=== PATIENT | female | born 1955 | race Caucasian/White ===

== ENCOUNTER 2017-09-25 01:44 | Emergency (ER) | payer OTHER ==
[~2017-09-25] VITALS: Ht 165.1 cm; Wt 70.3 kg
[~2017-09-25 01:44] MED LIST: ALPR0.25 PO; ALPR0.254 PO; ATOR40TA59 PO; HYDR-971 PO; OLME1TAB21 PO; OLME20TA19 PO; OLME5TAB4 PO; PANT40TA3 PO; ZOLP10TA PO
[2017-09-25 02:23] LABS: BASO # 0.1 x10^3/uL (0.0-0.2); BASO % 1 % (0-3); EOS % 0 % (0-3); HEMATOCRIT 37.7 % (36.0-47.0); HEMOGLOBIN 12.5 g/dL (12.0-15.5); LYMPH # 3.1 x10^3/uL (1.0-4.8); LYMPH % 26 % (24-48); MEAN CORPUSCULAR HEMOGLOBIN 32 pg (25-35); MEAN CORPUSCULAR HGB CONC 33 g/dL (31-37); MEAN CORPUSCULAR VOLUME 98 fL (79-100); MONO % 6 % (0-9); NEUT % 67 % (31-73); PLATELET COUNT 289 x10^3/uL (140-400); RED BLOOD COUNT 3.85 x10^6/uL (3.50-5.40); WHITE BLOOD COUNT 11.9 x10^3/uL (4.0-11.0)
[2017-09-25] MEDS ORDERED: IV NORMAL SALINE 1000ML BAG 1,000 ML IV ONE (02:30)
[2017-09-25] MEDS ORDERED: LIDO:MAALOX:DONNATAL 1:1:1 15 ML SINGLE DOSE SWSW ONE (02:30)
[2017-09-25 02:38] LABS: CALCIUM 8.6 mg/dL (8.5-10.1); CREATININE 0.8 mg/dL (0.6-1.0); GFR 73.2; POTASSIUM 3.7 mmol/L (3.5-5.1)
[2017-09-25 02:44] LABS: ALBUMIN 3.8 g/dL (3.4-5.0); ALBUMIN/GLOBULIN RATIO 1.3 (1.0-1.7); TOTAL BILIRUBIN 0.4 mg/dL (0.2-1.0); TOTAL PROTEIN 6.8 g/dL (6.4-8.2)
--- NOTE | 2017-09-25 03:46 | PHYS DOC ---
Past Medical History Past Medical History: No Pertinent History, Anxiety, Depression, High Cholesterol, Hypertension Past Surgical History: Appendectomy, Cholecystectomy, Colectomy, Additional Past Surgical Histo: colectomy Additional Information: 1 PPD Alcohol Use: Occasionally Drug Use: None Adult General Chief Complaint Chief Complaint: ABDOMINAL PAIN HPI HPI Patient is a 62 year old female who had lap karime yesterday. she did not fill hydrocodone. she has had intense epigastric pain into chest, shoulders, back. no n/v/d. no fever. she has extreme anxiety and can't calm down. she tried to eat but it just made her stomach "gurgle". Review of Systems Review of Systems Constitutional: Denies fever or chills [] Eyes: Denies change in visual acuity, redness, or eye pain [] HENT: Denies nasal congestion or sore throat [] Respiratory: Denies cough or shortness of breath pain into chest arms, back Cardiovascular: No additional information not addressed in HPI [] GI: +abdominal pain, no nausea, vomiting, bloody stools or diarrhea [] : Denies dysuria or hematuria [] Musculoskeletal: Denies back pain or joint pain [] Integument: Denies rash or skin lesions [] Neurologic: Denies headache, focal weakness or sensory changes [] Endocrine: Denies polyuria or polydipsia [] All other systems were reviewed and found to be within normal limits, except as documented in this note. Current Medications Current Medications Current Medications Medications (Trade) Dose Ordered Sig/Shawn Start Time Stop Time Status Last Admin Dose Admin Lorazepam (Ativan) 1 mg 1X ONCE 09/25/17 03:00 09/25/17 03:01 DC 09/25/17 02:28 1 MG Multi-Ingredient Mouthwash/Gargle (Gi Cocktail Single Dose) 15 ml 1X ONCE 09/25/17 02:30 09/25/17 02:31 DC 09/25/17 02:27 15 ML Sodium Chloride 1,000 ml @ 1,000 mls/hr 1X ONCE 09/25/17 02:30 09/25/17 03:29 DC 09/25/17 02:28 1,000 MLS/HR Allergies Allergies Allergies Coded Allergies Type Severity Reaction Last Updated Verified No Known Drug Allergies 09/23/17 No Physical Exam Physical Exam Constitutional: Well developed, well nourished, very anxious and tearful non- toxic appearance. [] HENT: Normocephalic, atraumatic, bilateral external ears normal, oropharynx moist, no oral exudates, nose normal. [] Eyes: PERRLA, EOMI, conjunctiva normal, no discharge. [] Neck: Normal range of motion, no tenderness, supple, no stridor. [] Cardiovascular:Heart rate regular rhythm, no murmur [] Lungs & Thorax: Bilateral breath sounds clear to auscultation [] Abdomen: Bowel sounds normal, soft, incisions are c/d/i. abd not distended, BS normal.no masses, no pulsatile masses. [] Skin: Warm, dry, no erythema, no rash. [] Back: No tenderness, no CVA tenderness. [] Extremities: No tenderness, no cyanosis, no clubbing, ROM intact, no edema. [] Neurologic: Alert and oriented X 3, normal motor function, normal sensory function, no focal deficits noted. [] Psychologic: Affect normal, judgement normal, mood normal. [] Current Patient Data Vital Signs Vital Signs Date Time Temp Pulse Resp B/P (MAP) Pulse Ox O2 Delivery O2 Flow Rate FiO2 09/25/17 01:52 97.9 64 20 151/79 (103) 97 Room Air 97.9 Lab Values Laboratory Tests Test 09/25/17 02:13 White Blood Count 11.9 x10^3/uL (4.0-11.0) H Red Blood Count 3.85 x10^6/uL (3.50-5.40) Hemoglobin 12.5 g/dL (12.0-15.5) Hematocrit 37.7 % (36.0-47.0) Mean Corpuscular Volume 98 fL (79-100) Mean Corpuscular Hemoglobin 32 pg (25-35) Mean Corpuscular Hemoglobin Concent 33 g/dL (31-37) Red Cell Distribution Width 13.0 % (11.5-14.5) Platelet Count 289 x10^3/uL (140-400) Neutrophils (%) (Auto) 67 % (31-73) Lymphocytes (%) (Auto) 26 % (24-48) Monocytes (%) (Auto) 6 % (0-9) Eosinophils (%) (Auto) 0 % (0-3) Basophils (%) (Auto) 1 % (0-3) Neutrophils # (Auto) 7.9 x10^3uL (1.8-7.7) H Lymphocytes # (Auto) 3.1 x10^3/uL (1.0-4.8) Monocytes # (Auto) 0.7 x10^3/uL (0.0-1.1) Eosinophils # (Auto) 0.0 x10^3/uL (0.0-0.7) Basophils # (Auto) 0.1 x10^3/uL (0.0-0.2) Sodium Level 146 mmol/L (136-145) H Potassium Level 3.7 mmol/L (3.5-5.1) Chloride Level 106 mmol/L (98-107) Carbon Dioxide Level 28 mmol/L (21-32) Anion Gap 12 (6-14) Blood Urea Nitrogen 14 mg/dL (7-20) Creatinine 0.8 mg/dL (0.6-1.0) Estimated GFR (Cockcroft-Gault) 73.2 BUN/Creatinine Ratio 18 (6-20) Glucose Level 108 mg/dL (70-99) H Calcium Level 8.6 mg/dL (8.5-10.1) Total Bilirubin 0.4 mg/dL (0.2-1.0) Aspartate Amino Transferase (AST) 22 U/L (15-37) Alanine Aminotransferase (ALT) 33 U/L (14-59) Alkaline Phosphatase 47 U/L (46-116) Total Protein 6.8 g/dL (6.4-8.2) Albumin 3.8 g/dL (3.4-5.0) Albumin/Globulin Ratio 1.3 (1.0-1.7) Lipase 88 U/L (73-393) Laboratory Tests 09/25/17 02:13 Laboratory Tests 09/25/17 02:13 EKG EKG [] Radiology/Procedures Radiology/Procedures [] Course & Med Decision Making Course & Med Decision Making Pertinent Labs and Imaging studies reviewed. (See chart for details) pt did not take any pain meds. she is very anxious and panicking. tried to reassure her that her abdominal exam is benign. her lungs sound normal and VSS. I believe this to be typical post-op pain. after ativan, she was much calmer and more reasonable [] Jhony Disclaimer Dragon Disclaimer This electronic medical record was generated, in whole or in part, using a voice recognition dictation system. Departure Departure Impression: Primary Impression: Anxiety Additional Impression: Post-op pain Disposition: HOME, SELF-CARE Condition: IMPROVED Referrals: HOANG KELLER MD (PCP) Patient Instructions: Anxiety and Panic Attacks Additional Instructions: hydrocodone for pain. take colace daily to help avoid constipation. zofran for nausea. xanax as needed for anxiety. return if pain worsens Problem Qualifiers JUAN MUNOZ MD Sep 25, 2017 03:46
[2017-09-25 03:55] VITALS: BP 133/66
[2017-09-25] MEDS ORDERED: HYDROcodone/APAP 5/325MG 1 TAB TABLET ONE (04:07)
[2017-09-25] MEDS ORDERED: HYDROcodone/APAP 5/325MG 1 TAB TABLET PO ONE (04:15)
== END 2017-09-25 04:10 | disposition home or self-care (01) ==
LOC: ER 01:44
DX: G89.18 Other acute postprocedural pain (principal); F41.9 Anxiety disorder, unspecified; R10.13 Epigastric pain; E78.00 Pure hypercholesterolemia, unspecified; I10 Essential (primary) hypertension; Z90.49 Acquired absence of other specified parts of digestive tract; F17.200 Nicotine dependence, unspecified, uncomplicated
CPT/HCPCS: 36415; 80053; 83690; 85025; 96361; 96374; 99285; J2060; J7030

== ENCOUNTER 2017-10-12 02:27 | Emergency (ER) | payer OTHER ==
[2017-10-12] MEDS: ONDANSETRON PF 4 MG/2 ML VIAL. IV (03:15)
[2017-10-12] MEDS: IV NORMAL SALINE 1000ML BAG 1,000 ML IV (03:19)
[2017-10-12 03:30] LABS: ADD MAN DIFF? NO
[2017-10-12 03:41] LABS: BASO # 0.1 x10^3/uL (0.0-0.2); BASO % 1 % (0-3); EOS # 0.3 x10^3/uL (0.0-0.7); EOS % 3 % (0-3); HEMATOCRIT 40.9 % (36.0-47.0); HEMOGLOBIN 13.6 g/dL (12.0-15.5); LYMPH # 2.9 x10^3/uL (1.0-4.8); LYMPH % 39 % (24-48); MEAN CORPUSCULAR HEMOGLOBIN 33 pg (25-35); MEAN CORPUSCULAR HGB CONC 33 g/dL (31-37); MEAN CORPUSCULAR VOLUME 99 fL (79-100); MONO # 0.6 x10^3/uL (0.0-1.1); MONO % 7 % (0-9); NEUT # 3.7 x10^3uL (1.8-7.7); NEUT % 49 % (31-73); PLATELET COUNT 332 x10^3/uL (140-400); RED BLOOD COUNT 4.12 x10^6/uL (3.50-5.40); RED CELL DISTRIBUTION WIDTH 13.4 % (11.5-14.5); WHITE BLOOD COUNT 7.5 x10^3/uL (4.0-11.0)
[2017-10-12 03:52] LABS: ANION GAP 13 (6-14); BLOOD UREA NITROGEN 10 mg/dL (7-20); BUN/CREATININE RATIO 14 (6-20); CALCIUM 9.2 mg/dL (8.5-10.1); CARBON DIOXIDE 26 mmol/L (21-32); CHLORIDE 104 mmol/L (98-107); CREATININE 0.7 mg/dL (0.6-1.0); GFR 85.4; GLUCOSE 109 mg/dL (70-99); POTASSIUM 4.3 mmol/L (3.5-5.1); SODIUM 143 mmol/L (136-145)
[2017-10-12 03:58] LABS: ALBUMIN 3.9 g/dL (3.4-5.0); ALBUMIN/GLOBULIN RATIO 1.3 (1.0-1.7); ALK PHOS 49 U/L (46-116); ALT (SGPT) 35 U/L (14-59); AST (SGOT) 24 U/L (15-37); LIPASE 114 U/L (73-393); TOTAL BILIRUBIN 0.4 mg/dL (0.2-1.0); TOTAL PROTEIN 6.8 g/dL (6.4-8.2)
[2017-10-12 04:05] LABS: TROPONINI < 0.017 ng/mL (0.000-0.055)
[2017-10-12 04:06] LABS: CKMB MASS 0.5 ng/mL (0.0-3.6); CREATINE KINASE 69 U/L (26-192)
[2017-10-12 04:08] LABS: D-DIMER < 0.27 ug/mlFEU (0.00-0.50)
== END 2017-10-12 04:30 | disposition home or self-care (01) ==
LOC: ER 02:27
DX: R10.84 Generalized abdominal pain (principal); R11.0 Nausea; F41.9 Anxiety disorder, unspecified; E78.00 Pure hypercholesterolemia, unspecified; I10 Essential (primary) hypertension; Z90.49 Acquired absence of other specified parts of digestive tract
CPT/HCPCS: 36415; 80053; 82553; 83690; 84484; 85025; 85379; 93005; 96360; 99285-25; J7030

== ENCOUNTER 2017-11-14 16:22 | Emergency (ER) | payer OTHER ==
[2017-11-14 16:57] LABS: ADD MAN DIFF? NO; BILIRUBIN,URINE NEGATIVE (NEG); CLARITY,URINE CLEAR; COLOR,URINE ORANGE; GLUCOSE,URINE NEGATIVE (NEG); NITRITE,URINE POSITIVE (NEG); PH,URINE 5.5; PROTEIN,URINE NEGATIVE (NEG-TRACE); UROBILINOGEN,URINE 0.2 mg/dL (0.2 mg/dL)
[2017-11-14 17:00] LABS: BASO # 0.1 x10^3/uL (0.0-0.2); BASO % 1 % (0-3); EOS # 0.2 x10^3/uL (0.0-0.7); EOS % 2 % (0-3); HEMATOCRIT 38.7 % (36.0-47.0); HEMOGLOBIN 13.2 g/dL (12.0-15.5); LYMPH # 2.6 x10^3/uL (1.0-4.8); LYMPH % 25 % (24-48); MEAN CORPUSCULAR HEMOGLOBIN 33 pg (25-35); MEAN CORPUSCULAR HGB CONC 34 g/dL (31-37); MEAN CORPUSCULAR VOLUME 98 fL (79-100); MONO # 0.8 x10^3/uL (0.0-1.1); MONO % 7 % (0-9); NEUT # 6.6 x10^3uL (1.8-7.7); NEUT % 65 % (31-73); PLATELET COUNT 356 x10^3/uL (140-400); RED BLOOD COUNT 3.96 x10^6/uL (3.50-5.40); RED CELL DISTRIBUTION WIDTH 13.1 % (11.5-14.5); WHITE BLOOD COUNT 10.2 x10^3/uL (4.0-11.0)
[2017-11-14] MEDS: IV NORMAL SALINE 1000ML BAG 1,000 ML IV ×2 (17:00)
[2017-11-14] MEDS: ONDANSETRON PF 4 MG/2 ML VIAL. IV ×2 (17:01)
[2017-11-14] MEDS: KETOROLAC 30 MG/ML INJ. IV ×2 (17:02)
[2017-11-14] MEDS: fentaNYL PF VIAL 100 MCG/2 ML VIAL IV ×2 (17:03)
[2017-11-14 17:07] LABS: BACTERIA,URINE 0 /HPF (0-FEW); RBC,URINE 0 /HPF (0-2); SQUAMOUS EPITHELIAL CELL,UR FEW /LPF
[2017-11-14 17:14] LABS: ANION GAP 11 (6-14); BLOOD UREA NITROGEN 18 mg/dL (7-20); BUN/CREATININE RATIO 23 (6-20); CALCIUM 9.8 mg/dL (8.5-10.1); CARBON DIOXIDE 27 mmol/L (21-32); CHLORIDE 102 mmol/L (98-107); CREATININE 0.8 mg/dL (0.6-1.0); GFR 73.2; GLUCOSE 111 mg/dL (70-99); POTASSIUM 3.9 mmol/L (3.5-5.1); SODIUM 140 mmol/L (136-145)
[2017-11-14 17:20] LABS: ALBUMIN 3.9 g/dL (3.4-5.0); ALK PHOS 65 U/L (46-116); ALT (SGPT) 38 U/L (14-59); AST (SGOT) 19 U/L (15-37); LIPASE 114 U/L (73-393); TOTAL BILIRUBIN 0.2 mg/dL (0.2-1.0); TOTAL PROTEIN 7.7 g/dL (6.4-8.2)
== END 2017-11-14 20:07 | disposition home or self-care (01) ==
LOC: ER 16:22
DX: N30.00 Acute cystitis without hematuria (principal); I10 Essential (primary) hypertension; E78.00 Pure hypercholesterolemia, unspecified; Z90.49 Acquired absence of other specified parts of digestive tract; Z98.890 Other specified postprocedural states
CPT/HCPCS: 36415; 74176; 80053; 81001; 83690; 85025; 87086; 93005; 96361; 96374; 96375; 99285-25; J1885; J2405; J3010; J7030

== ENCOUNTER 2017-11-15 02:39 | Emergency (ER) | payer OTHER ==
[2017-11-15 03:11] LABS: ADD MAN DIFF? NO
[2017-11-15 03:14] LABS: BASO # 0.1 x10^3/uL (0.0-0.2); BASO % 1 % (0-3); EOS # 0.2 x10^3/uL (0.0-0.7); EOS % 3 % (0-3); HEMATOCRIT 38.7 % (36.0-47.0); HEMOGLOBIN 13.1 g/dL (12.0-15.5); LYMPH % 33 % (24-48); MEAN CORPUSCULAR HEMOGLOBIN 33 pg (25-35); MEAN CORPUSCULAR HGB CONC 34 g/dL (31-37); MEAN CORPUSCULAR VOLUME 98 fL (79-100); MONO # 0.9 x10^3/uL (0.0-1.1); MONO % 10 % (0-9); NEUT % 54 % (31-73); PLATELET COUNT 325 x10^3/uL (140-400); RED BLOOD COUNT 3.93 x10^6/uL (3.50-5.40); WHITE BLOOD COUNT 9.3 x10^3/uL (4.0-11.0)
[2017-11-15] MEDS: ONDANSETRON PF 4 MG/2 ML VIAL. IV ×2 (03:18)
[2017-11-15] MEDS: IV NORMAL SALINE 1000ML BAG 1,000 ML IV ×2 (03:18)
[2017-11-15] MEDS: fentaNYL PF VIAL 100 MCG/2 ML VIAL IV ×2 (03:19)
[2017-11-15] MEDS: LIDO:MAALOX:DONNATAL 1:1:1 15 ML SINGLE DOSE SWSW ×2 (03:19)
[2017-11-15] MEDS: FAMOTIDINE 20 MG TABLET. PO ×2 (03:19)
[2017-11-15 03:27] LABS: ANION GAP 12 (6-14); BLOOD UREA NITROGEN 18 mg/dL (7-20); BUN/CREATININE RATIO 26 (6-20); CALCIUM 9.5 mg/dL (8.5-10.1); CARBON DIOXIDE 24 mmol/L (21-32); CHLORIDE 104 mmol/L (98-107); CREATININE 0.7 mg/dL (0.6-1.0); GFR 85.4; GLUCOSE 108 mg/dL (70-99); POTASSIUM 3.8 mmol/L (3.5-5.1); SODIUM 140 mmol/L (136-145)
[2017-11-15] MEDS ORDERED: fentaNYL PF VIAL 100 MCG/2 ML VIAL IV ×2 (03:30)
[2017-11-15] MEDS ORDERED: ONDANSETRON PF 4 MG/2 ML VIAL. IV ×2 (03:30)
[2017-11-15 03:34] LABS: ALBUMIN 3.5 g/dL (3.4-5.0); ALBUMIN/GLOBULIN RATIO 1.1 (1.0-1.7); ALK PHOS 49 U/L (46-116); ALT (SGPT) 35 U/L (14-59); AST (SGOT) 21 U/L (15-37); LIPASE 116 U/L (73-393); TOTAL BILIRUBIN 0.2 mg/dL (0.2-1.0); TOTAL PROTEIN 6.8 g/dL (6.4-8.2)
[2017-11-15 03:40] LABS: TROPONINI < 0.017 ng/mL (0.000-0.055)
[2017-11-15] MEDS: cefTRIAXone IV Push 1 GM VIAL. IVP ×2 (03:41)
[2017-11-15] MEDS: HYDROcodone/APAP 5/325MG 1 TAB TABLET PO ×2 (04:15)
[2017-11-15] MEDS: diphenhydrAMINE HCL 25 MG CAPSULE PO ×2 (04:15)
[2017-11-16] MEDS ORDERED: cefTRIAXone IV Push 1 GM VIAL. IVP ×2 (06:00)
== END 2017-11-15 04:37 | disposition home or self-care (01) ==
LOC: ER 02:39
DX: R10.13 Epigastric pain (principal); R11.0 Nausea; E78.00 Pure hypercholesterolemia, unspecified; I10 Essential (primary) hypertension; Z90.49 Acquired absence of other specified parts of digestive tract; Z98.890 Other specified postprocedural states
CPT/HCPCS: 36415; 74022; 80053; 83690; 84484; 85025; 93005; 96361; 96374; 96375; 99285-25; J0696; J2405; J3010; J7030

== ENCOUNTER 2017-11-17 14:19 | Inpatient (IN) | payer OTHER ==
[2017-11-17 16:13] LABS: ADD MAN DIFF? NO
[2017-11-17 16:20] LABS: BASO # 0.1 x10^3/uL (0.0-0.2); BASO % 1 % (0-3); EOS # 0.1 x10^3/uL (0.0-0.7); EOS % 1 % (0-3); HEMATOCRIT 41.4 % (36.0-47.0); LYMPH # 2.5 x10^3/uL (1.0-4.8); LYMPH % 27 % (24-48); MEAN CORPUSCULAR HEMOGLOBIN 33 pg (25-35); MEAN CORPUSCULAR HGB CONC 34 g/dL (31-37); MEAN CORPUSCULAR VOLUME 98 fL (79-100); MONO # 0.5 x10^3/uL (0.0-1.1); MONO % 5 % (0-9); NEUT % 65 % (31-73); PLATELET COUNT 375 x10^3/uL (140-400); RED BLOOD COUNT 4.23 x10^6/uL (3.50-5.40); RED CELL DISTRIBUTION WIDTH 12.9 % (11.5-14.5); WHITE BLOOD COUNT 9.2 x10^3/uL (4.0-11.0)
[2017-11-17 16:22] LABS: BILIRUBIN,URINE NEGATIVE (NEG); CLARITY,URINE CLEAR; COLOR,URINE YELLOW; GLUCOSE,URINE NEGATIVE (NEG); NITRITE,URINE NEGATIVE (NEG); PH,URINE 5.5; PROTEIN,URINE NEGATIVE (NEG-TRACE); UROBILINOGEN,URINE 0.2 mg/dL (0.2 mg/dL)
[2017-11-17] MEDS: ONDANSETRON PF 4 MG/2 ML VIAL. IV (16:27)
[2017-11-17] MEDS: fentaNYL PF VIAL 100 MCG/2 ML VIAL IV ×2 (16:27→21:34)
[2017-11-17] MEDS: IV NORMAL SALINE 1000ML BAG 1,000 ML IV ×2 (16:27→20:47)
[2017-11-17 16:30] LABS: ANION GAP 11 (6-14); BLOOD UREA NITROGEN 8 mg/dL (7-20); BUN/CREATININE RATIO 11 (6-20); CALCIUM 9.3 mg/dL (8.5-10.1); CARBON DIOXIDE 29 mmol/L (21-32); CHLORIDE 103 mmol/L (98-107); CREATININE 0.7 mg/dL (0.6-1.0); GFR 85.4; GLUCOSE 92 mg/dL (70-99); POTASSIUM 3.8 mmol/L (3.5-5.1); SODIUM 143 mmol/L (136-145)
[2017-11-17 16:33] LABS: BACTERIA,URINE 0 /HPF (0-FEW); RBC,URINE RARE /HPF (0-2); SQUAMOUS EPITHELIAL CELL,UR FEW /LPF; WBC,URINE 0 /HPF (0-4)
[2017-11-17 16:35] LABS: ALBUMIN 4.2 g/dL (3.4-5.0); ALBUMIN/GLOBULIN RATIO 1.1 (1.0-1.7); ALK PHOS 54 U/L (46-116); ALT (SGPT) 37 U/L (14-59); AST (SGOT) 21 U/L (15-37); LIPASE 92 U/L (73-393); TOTAL BILIRUBIN 0.2 mg/dL (0.2-1.0); TOTAL PROTEIN 8.1 g/dL (6.4-8.2)
[2017-11-17] MEDS ORDERED: ACETAMINOPHEN 325 MG TABLET. PO (17:45)
[2017-11-17] MEDS ORDERED: ONDANSETRON PF 4 MG/2 ML VIAL. IV (17:45)
[2017-11-17] MEDS: oxyCODONE/APAP 5/325 1 TAB TABLET PO (23:18)
[2017-11-17] MEDS: ALPRAZolam 0.25 MG TABLET PO (23:19)
[2017-11-18] MEDS: IV NORMAL SALINE 1000ML BAG 1,000 ML IV (01:37)
[2017-11-18 04:52] LABS: ADD MAN DIFF? NO
[2017-11-18 05:00] LABS: BASO # 0.1 x10^3/uL (0.0-0.2); BASO % 1 % (0-3); EOS # 0.3 x10^3/uL (0.0-0.7); EOS % 3 % (0-3); HEMATOCRIT 34.6 % (36.0-47.0); HEMOGLOBIN 11.7 g/dL (12.0-15.5); LYMPH # 3.5 x10^3/uL (1.0-4.8); LYMPH % 41 % (24-48); MEAN CORPUSCULAR HEMOGLOBIN 34 pg (25-35); MEAN CORPUSCULAR HGB CONC 34 g/dL (31-37); MEAN CORPUSCULAR VOLUME 99 fL (79-100); MONO # 0.6 x10^3/uL (0.0-1.1); MONO % 8 % (0-9); NEUT % 47 % (31-73); PLATELET COUNT 301 x10^3/uL (140-400); RED CELL DISTRIBUTION WIDTH 13.2 % (11.5-14.5); WHITE BLOOD COUNT 8.5 x10^3/uL (4.0-11.0)
[2017-11-18 05:13] LABS: ANION GAP 6 (6-14); BLOOD UREA NITROGEN 11 mg/dL (7-20); CALCIUM 8.1 mg/dL (8.5-10.1); CARBON DIOXIDE 29 mmol/L (21-32); CHLORIDE 107 mmol/L (98-107); CREATININE 0.8 mg/dL (0.6-1.0); GFR 73.2; GLUCOSE 95 mg/dL (70-99); SODIUM 142 mmol/L (136-145)
[2017-11-18] MEDS ORDERED: ONDANSETRON ODT 4 MG TAB.RAPDIS. PO (09:00)
[2017-11-18] MEDS: NICOTINE 14MG PATCH. TD (09:00)
[2017-11-18] MEDS ORDERED: ZOLPIDEM 5 MG TABLET. PO (09:45)
[2017-11-18] MEDS: ESTRADIOL 1 MG TABLET. PO (10:00)
[2017-11-18] MEDS: ALPRAZolam 0.25 MG TABLET PO ×3 (10:27→22:34)
[2017-11-18] MEDS: PANTOPRAZOLE 40 MG TABLET.DR. PO (11:30)
[2017-11-18] MEDS: HYDROcodone/APAP 5/325MG 1 TAB TABLET PO ×3 (12:33→22:33)
[2017-11-18] MEDS: LIDOCAINE 2% JELLY 6ML IN APPLICATOR. MM (12:45)
[2017-11-18] MEDS: fentaNYL PF VIAL 100 MCG/2 ML VIAL IV (12:45)
[2017-11-18] MEDS: DICYCLOMINE HCL 10 MG CAPSULE PO (16:51)
[2017-11-18] MEDS: ATORVASTATIN CALCIUM 40 MG TABLET. PO ×2 (21:00→22:33)
[2017-11-18] MEDS: ESTROGENS, CONJ VAGINAL CREAM 30GM TUBE. VG (22:33)
[2017-11-18 23:11] LABS: C DIFF BY PCR Negative (Negative)
[2017-11-19] MEDS: PANTOPRAZOLE 40 MG TABLET.DR. PO (07:30)
[2017-11-19] MEDS: NICOTINE 14MG PATCH. TD (09:00)
[2017-11-19] MEDS: ALPRAZolam 0.25 MG TABLET PO (09:00)
== END 2017-11-19 10:25 | disposition home or self-care (01) | DRG 761 ==
LOC: ER 14:19 → 4 NORTH 17:11
DX: D25.9 Leiomyoma of uterus, unspecified (principal); E78.00 Pure hypercholesterolemia, unspecified; N95.2 Postmenopausal atrophic vaginitis; K59.4 Anal spasm; E78.5 Hyperlipidemia, unspecified; F17.200 Nicotine dependence, unspecified, uncomplicated; F32.9 Major depressive disorder, single episode, unspecified; F41.9 Anxiety disorder, unspecified; I10 Essential (primary) hypertension; Z80.0 Family history of malignant neoplasm of digestive organs; Z82.49 Family history of ischemic heart disease and other diseases of the circulatory system; Z83.3 Family history of diabetes mellitus; Z83.71 Family history of colonic polyps; Z87.440 Personal history of urinary (tract) infections; Z90.49 Acquired absence of other specified parts of digestive tract; M19.90 Unspecified osteoarthritis, unspecified site; N93.9 Abnormal uterine and vaginal bleeding, unspecified
CPT/HCPCS: 36415; 76830; 76856; 80048; 80053; 81001; 83690; 85025; 87045; 87086; 87324; 93005; 96361; 96374; 96375; 99285; 99285-25; J2405; J3010; J7030; Q0111

== ENCOUNTER → 2018-01-13 | Outpatient (CLI) | payer OTHER | END | disposition home or self-care (01) | LOC: KCIC MRI 15:47 | DX: M51.16 Intervertebral disc disorders with radiculopathy, lumbar region (principal); M51.36 Other intervertebral disc degeneration, lumbar region; Z91.81 History of falling | CPT/HCPCS: 72148 ==

== ENCOUNTER 2018-02-26 11:46 | Emergency (ER) | payer OTHER ==
[2018-02-26 12:05] LABS: ADD MAN DIFF? NO
[2018-02-26 12:07] LABS: BASO # 0.1 x10^3/uL (0.0-0.2); BASO % 1 % (0-3); EOS # 0.1 x10^3/uL (0.0-0.7); EOS % 1 % (0-3); HEMATOCRIT 41.5 % (36.0-47.0); HEMOGLOBIN 14.4 g/dL (12.0-15.5); LYMPH # 2.8 x10^3/uL (1.0-4.8); LYMPH % 28 % (24-48); MEAN CORPUSCULAR HEMOGLOBIN 34 pg (25-35); MEAN CORPUSCULAR HGB CONC 35 g/dL (31-37); MEAN CORPUSCULAR VOLUME 97 fL (79-100); MONO # 0.6 x10^3/uL (0.0-1.1); MONO % 6 % (0-9); NEUT # 6.5 x10^3uL (1.8-7.7); NEUT % 64 % (31-73); PLATELET COUNT 332 x10^3/uL (140-400); RED BLOOD COUNT 4.27 x10^6/uL (3.50-5.40); RED CELL DISTRIBUTION WIDTH 13.6 % (11.5-14.5); WHITE BLOOD COUNT 10.1 x10^3/uL (4.0-11.0)
[2018-02-26 12:08] LABS: BILIRUBIN,URINE NEGATIVE (NEG); CLARITY,URINE CLEAR; COLOR,URINE YELLOW; GLUCOSE,URINE NEGATIVE (NEG); NITRITE,URINE NEGATIVE (NEG); PROTEIN,URINE NEGATIVE (NEG-TRACE); UROBILINOGEN,URINE 0.2 mg/dL (0.2 mg/dL)
[2018-02-26 12:15] LABS: BACTERIA,URINE 0 /HPF (0-FEW); RBC,URINE 0 /HPF (0-2); SQUAMOUS EPITHELIAL CELL,UR MOD /LPF; WBC,URINE OCC /HPF (0-4)
[2018-02-26 12:27] LABS: ANION GAP 7 (6-14); BLOOD UREA NITROGEN 10 mg/dL (7-20); CALCIUM 9.4 mg/dL (8.5-10.1); CARBON DIOXIDE 29 mmol/L (21-32); CHLORIDE 103 mmol/L (98-107); CREATININE 0.9 mg/dL (0.6-1.0); GFR 63.9; GLUCOSE 103 mg/dL (70-99); POTASSIUM 3.9 mmol/L (3.5-5.1); SODIUM 139 mmol/L (136-145)
[2018-02-26] MEDS ORDERED: fentaNYL PF VIAL 100 MCG/2 ML VIAL IV (12:30)
[2018-02-26 12:33] LABS: ALK PHOS 56 U/L (46-116); ALT (SGPT) 40 U/L (14-59); AST (SGOT) 22 U/L (15-37); DIRECT BILIRUBIN 0.1 mg/dL (0.0-0.2); LIPASE 66 U/L (73-393); TOTAL BILIRUBIN 0.6 mg/dL (0.2-1.0); TOTAL PROTEIN 7.7 g/dL (6.4-8.2)
[2018-02-26 12:36] LABS: LACTIC ACID 1.1 mmol/L (0.4-2.0)
[2018-02-26] MEDS: IV NORMAL SALINE 1000ML BAG 1,000 ML IV (12:36)
[2018-02-26 12:40] LABS: TROPONINI < 0.017 ng/mL (0.000-0.055)
[2018-02-26] MEDS: ONDANSETRON PF 4 MG/2 ML VIAL. IV (12:40)
[2018-02-26] MEDS: PANTOPRAZOLE IV PUSH 40 MG VIAL. IVP (12:44)
[2018-02-26] MEDS ORDERED: CONTRAST GIVEN MC (12:45)
[2018-02-26] MEDS: IOHEXOL 300 MG/ML 100ML VIAL. IV (12:45)
== END 2018-02-26 13:55 | disposition home or self-care (01) ==
LOC: ER 11:46
DX: R10.13 Epigastric pain (principal); M54.6 Pain in thoracic spine; E78.00 Pure hypercholesterolemia, unspecified; F32.9 Major depressive disorder, single episode, unspecified; F41.9 Anxiety disorder, unspecified; I10 Essential (primary) hypertension; F17.210 Nicotine dependence, cigarettes, uncomplicated; Z90.49 Acquired absence of other specified parts of digestive tract; Z87.440 Personal history of urinary (tract) infections
CPT/HCPCS: 36415; 74177; 80048; 80076; 81001; 83605; 83690; 84484; 85025; 87086; 93005; 96374; 96375; 99285-25; C9113; J2405; J7030; Q9967

== ENCOUNTER 2018-02-27 21:26 | Observation (INO) | payer OTHER ==
[2018-02-27 21:50] LABS: ADD MAN DIFF? NO
[2018-02-27 21:52] LABS: BASO # 0.1 x10^3/uL (0.0-0.2); BASO % 1 % (0-3); EOS # 0.2 x10^3/uL (0.0-0.7); EOS % 2 % (0-3); HEMATOCRIT 38.9 % (36.0-47.0); HEMOGLOBIN 13.1 g/dL (12.0-15.5); LYMPH # 3.6 x10^3/uL (1.0-4.8); LYMPH % 34 % (24-48); MEAN CORPUSCULAR HEMOGLOBIN 33 pg (25-35); MEAN CORPUSCULAR HGB CONC 34 g/dL (31-37); MEAN CORPUSCULAR VOLUME 98 fL (79-100); MONO # 0.7 x10^3/uL (0.0-1.1); MONO % 7 % (0-9); NEUT % 57 % (31-73); PLATELET COUNT 297 x10^3/uL (140-400); RED BLOOD COUNT 3.98 x10^6/uL (3.50-5.40); RED CELL DISTRIBUTION WIDTH 13.4 % (11.5-14.5); WHITE BLOOD COUNT 10.6 x10^3/uL (4.0-11.0)
[2018-02-27 21:55] LABS: BILIRUBIN,URINE NEGATIVE (NEG); CLARITY,URINE CLEAR; COLOR,URINE YELLOW; GLUCOSE,URINE NEGATIVE (NEG); NITRITE,URINE NEGATIVE (NEG); PH,URINE 6.5; PROTEIN,URINE NEGATIVE (NEG-TRACE); UROBILINOGEN,URINE 0.2 mg/dL (0.2 mg/dL)
[2018-02-27 22:02] LABS: BACTERIA,URINE 0 /HPF (0-FEW); SQUAMOUS EPITHELIAL CELL,UR FEW /LPF; WBC,URINE OCC /HPF (0-4)
[2018-02-27 22:17] LABS: BLOOD UREA NITROGEN 17 mg/dL (7-20); BUN/CREATININE RATIO 21 (6-20); CALCIUM 9.5 mg/dL (8.5-10.1); CREATININE 0.8 mg/dL (0.6-1.0); GFR 73.2; GLUCOSE 98 mg/dL (70-99)
[2018-02-27] MEDS: LORazepam 1 MG TABLET PO (22:21)
[2018-02-27 22:23] LABS: ALBUMIN 3.8 g/dL (3.4-5.0); ALBUMIN/GLOBULIN RATIO 1.3 (1.0-1.7); ALK PHOS 57 U/L (46-116); ALT (SGPT) 31 U/L (14-59); AST (SGOT) 17 U/L (15-37); TOTAL BILIRUBIN 0.3 mg/dL (0.2-1.0); TOTAL PROTEIN 6.7 g/dL (6.4-8.2)
[2018-02-27 22:26] LABS: TROPONINI < 0.017 ng/mL (0.000-0.055)
[2018-02-27 22:28] LABS: ANION GAP 12 (6-14); CARBON DIOXIDE 27 mmol/L (21-32); CHLORIDE 102 mmol/L (98-107); SODIUM 141 mmol/L (136-145)
[2018-02-27 22:31] LABS: CKMB MASS < 0.5 ng/mL (0.0-3.6); CREATINE KINASE 69 U/L (26-192)
[2018-02-27] MEDS ORDERED: MORPHINE SULFATE 4 MG/ML DISP.SYRIN. IV (23:45)
[2018-02-27] MEDS ORDERED: ONDANSETRON PF 4 MG/2 ML VIAL. IV (23:45)
[2018-02-27] MEDS ORDERED: ACETAMINOPHEN 325 MG TABLET. PO (23:45)
[2018-02-28] MEDS ORDERED: ONDANSETRON ODT 4 MG TAB.RAPDIS. PO (01:30)
[2018-02-28] MEDS: traZODone 50 MG TABLET. PO (01:45)
[2018-02-28] MEDS ORDERED: ALPRAZolam 0.5 MG TABLET PO (01:45)
[2018-02-28 04:02] LABS: ADD MAN DIFF? NO
[2018-02-28 04:04] LABS: BASO # 0.1 x10^3/uL (0.0-0.2); BASO % 1 % (0-3); EOS # 0.2 x10^3/uL (0.0-0.7); EOS % 2 % (0-3); HEMATOCRIT 36.1 % (36.0-47.0); HEMOGLOBIN 12.3 g/dL (12.0-15.5); LYMPH # 3.3 x10^3/uL (1.0-4.8); LYMPH % 42 % (24-48); MEAN CORPUSCULAR HEMOGLOBIN 33 pg (25-35); MEAN CORPUSCULAR HGB CONC 34 g/dL (31-37); MEAN CORPUSCULAR VOLUME 98 fL (79-100); MONO # 0.5 x10^3/uL (0.0-1.1); MONO % 7 % (0-9); NEUT # 3.9 x10^3uL (1.8-7.7); NEUT % 49 % (31-73); PLATELET COUNT 273 x10^3/uL (140-400); RED BLOOD COUNT 3.68 x10^6/uL (3.50-5.40); RED CELL DISTRIBUTION WIDTH 13.3 % (11.5-14.5); WHITE BLOOD COUNT 7.9 x10^3/uL (4.0-11.0)
[2018-02-28 04:28] LABS: ALBUMIN 3.5 g/dL (3.4-5.0); ALBUMIN/GLOBULIN RATIO 1.3 (1.0-1.7); ALK PHOS 50 U/L (46-116); ALT (SGPT) 29 U/L (14-59); ANION GAP 8 (6-14); AST (SGOT) 13 U/L (15-37); BLOOD UREA NITROGEN 15 mg/dL (7-20); BUN/CREATININE RATIO 17 (6-20); CALCIUM 8.7 mg/dL (8.5-10.1); CARBON DIOXIDE 28 mmol/L (21-32); CHLORIDE 107 mmol/L (98-107); CREATININE 0.9 mg/dL (0.6-1.0); GFR 63.9; GLUCOSE 102 mg/dL (70-99); POTASSIUM 4.1 mmol/L (3.5-5.1); SODIUM 143 mmol/L (136-145); TOTAL BILIRUBIN 0.3 mg/dL (0.2-1.0); TOTAL PROTEIN 6.3 g/dL (6.4-8.2)
[2018-02-28 04:37] LABS: TROPONINI < 0.017 ng/mL (0.000-0.055)
[2018-02-28] MEDS: PANTOPRAZOLE 40 MG TABLET.DR. PO (08:23)
[2018-02-28 10:31] LABS: TROPONINI < 0.017 ng/mL (0.000-0.055)
[2018-02-28] MEDS ORDERED: ATORVASTATIN CALCIUM 40 MG TABLET. PO (21:00)
[2018-03-04 06:21] LABS: H PYLORI IGG 0.23 (0.00-0.79)
== END 2018-02-28 11:30 | disposition home or self-care (01) ==
LOC: 5 SOUTH 23:37 → ER 21:26
DX: R07.9 Chest pain, unspecified (principal); E78.00 Pure hypercholesterolemia, unspecified; E78.5 Hyperlipidemia, unspecified; F17.200 Nicotine dependence, unspecified, uncomplicated; F41.9 Anxiety disorder, unspecified; I10 Essential (primary) hypertension; F32.9 Major depressive disorder, single episode, unspecified; R10.9 Unspecified abdominal pain; Z90.49 Acquired absence of other specified parts of digestive tract
CPT/HCPCS: 36415; 71045; 80053; 81001; 82553; 84484; 85025; 85610; 86677; 93005; 99285-25; G0378; G0379

== ENCOUNTER 2018-05-01 19:03 | Emergency (ER) | payer OTHER ==
[2018-05-01 19:40] LABS: ADD MAN DIFF? NO
[2018-05-01 19:41] LABS: BASO # 0.1 x10^3/uL (0.0-0.2); BASO % 1 % (0-3); EOS # 0.1 x10^3/uL (0.0-0.7); EOS % 2 % (0-3); HEMATOCRIT 37.1 % (36.0-47.0); HEMOGLOBIN 12.7 g/dL (12.0-15.5); LYMPH # 3.2 x10^3/uL (1.0-4.8); LYMPH % 35 % (24-48); MEAN CORPUSCULAR HEMOGLOBIN 34 pg (25-35); MEAN CORPUSCULAR HGB CONC 34 g/dL (31-37); MEAN CORPUSCULAR VOLUME 97 fL (79-100); MONO # 0.6 x10^3/uL (0.0-1.1); MONO % 7 % (0-9); NEUT # 5.3 x10^3uL (1.8-7.7); NEUT % 56 % (31-73); PLATELET COUNT 240 x10^3/uL (140-400); RED BLOOD COUNT 3.81 x10^6/uL (3.50-5.40); RED CELL DISTRIBUTION WIDTH 13.5 % (11.5-14.5); WHITE BLOOD COUNT 9.3 x10^3/uL (4.0-11.0)
[2018-05-01 19:47] LABS: BILIRUBIN,URINE NEGATIVE (NEG); CLARITY,URINE CLEAR; COLOR,URINE YELLOW; GLUCOSE,URINE NEGATIVE (NEG); NITRITE,URINE NEGATIVE (NEG); PH,URINE 6.5; PROTEIN,URINE NEGATIVE (NEG-TRACE); UROBILINOGEN,URINE 0.2 mg/dL (0.2 mg/dL)
[2018-05-01 19:54] LABS: BACTERIA,URINE 0 /HPF (0-FEW); RBC,URINE RARE /HPF (0-2); SQUAMOUS EPITHELIAL CELL,UR FEW /LPF
[2018-05-01 19:56] LABS: ANION GAP 9 (6-14); BLOOD UREA NITROGEN 17 mg/dL (7-20); BUN/CREATININE RATIO 21 (6-20); CALCIUM 9.1 mg/dL (8.5-10.1); CARBON DIOXIDE 27 mmol/L (21-32); CHLORIDE 100 mmol/L (98-107); CREATININE 0.8 mg/dL (0.6-1.0); GFR 73.2; GLUCOSE 92 mg/dL (70-99); SODIUM 136 mmol/L (136-145)
[2018-05-01 20:02] LABS: ALBUMIN 3.6 g/dL (3.4-5.0); ALBUMIN/GLOBULIN RATIO 1.1 (1.0-1.7); ALK PHOS 50 U/L (46-116); ALT (SGPT) 24 U/L (14-59); AST (SGOT) 16 U/L (15-37); TOTAL BILIRUBIN 0.2 mg/dL (0.2-1.0); TOTAL PROTEIN 6.8 g/dL (6.4-8.2)
[2018-05-01] MEDS: FAMOTIDINE 20 MG/2 ML VIAL IVP (20:07)
[2018-05-01 20:11] LABS: TROPONINI < 0.017 ng/mL (0.000-0.055)
[2018-05-01] MEDS: fentaNYL PF VIAL 100 MCG/2 ML VIAL IV (20:14)
[2018-05-01] MEDS: MORPHINE SULFATE 2 MG/ML DISP.SYRIN. IV (21:46)
== END 2018-05-01 21:51 | disposition home or self-care (01) ==
LOC: ER 19:03
DX: R10.11 Right upper quadrant pain (principal); K21.9 Gastro-esophageal reflux disease without esophagitis; E78.00 Pure hypercholesterolemia, unspecified; I10 Essential (primary) hypertension; Z87.440 Personal history of urinary (tract) infections; Z90.49 Acquired absence of other specified parts of digestive tract
CPT/HCPCS: 36415; 71045; 80053; 81001; 84484; 85025; 93005; 96374; 96375; 99285-25; J2270; J3010; S0028

== ENCOUNTER 2018-08-29 16:46 | Emergency (ER) | payer OTHER ==
[~2018-08-29] VITALS: Ht 165.1 cm; Wt 70.3 kg
[~2018-08-29 16:46] MED LIST changes: +ACET-704 PO; +CEFP200T PO; +DICY10CA53 PO; +HYDR-3164 PO; -HYDR-971 PO; +OLME20TA17 PO; -OLME20TA19 PO; +OMEP20CA9 PO; +ONDA4TAB10 PO; +PROM25TA10 PO; +TRAZ-85 PO
--- NOTE | 2018-08-29 17:28 | PHYS DOC ---
Past Medical History Past Medical History: Anxiety, GERD, High Cholesterol Past Surgical History: No Surgical History Additional Past Surgical Histo: colectomy Alcohol Use: Occasionally Drug Use: None Adult General Chief Complaint Chief Complaint: CHEST PAIN HPI HPI Patient is a 63 year old female who presents with chest pain. This is burning in sensation, mild to moderate in intensity, no worse with exertion, no worse with activity. This started approximately an hour to an hour and a half prior to arrival. Patient did forget her gastroesophageal reflux disease medication when she went out of town for the past several days during this holiday. Patient did take her blood pressure and cholesterol medicine with her though. Patient reports minimal improvement with Tums tablets. Patient is not taking any aspirin. There is no radiation of the discomfort, no nausea, no vomiting, no diaphoresis. Patient has no PE risk factors. No lower extremity swelling. Nothing seems to make the discomfort better or worse.[] Review of Systems Review of Systems Constitutional: Denies fever or chills [] Eyes: Denies change in visual acuity, redness, or eye pain [] HENT: Denies nasal congestion or sore throat [] Respiratory: Denies cough or shortness of breath [] Cardiovascular: No additional information not addressed in HPI [] GI: Denies abdominal pain, nausea, vomiting, bloody stools or diarrhea [] : Denies dysuria or hematuria [] Musculoskeletal: Denies back pain or joint pain [] Integument: Denies rash or skin lesions [] Neurologic: Denies headache, focal weakness or sensory changes [] Endocrine: Denies polyuria or polydipsia [] All other systems were reviewed and found to be within normal limits, except as documented in this note. Current Medications Current Medications Current Medications Medications (Trade) Dose Ordered Sig/Shawn Start Time Stop Time Status Last Admin Dose Admin Aspirin (Children'S Aspirin) 324 mg 1X ONCE 08/29/18 18:00 08/29/18 18:01 DC 08/29/18 17:42 324 MG Pantoprazole Sodium (PROTONIX VIAL for IV PUSH) 40 mg 1X ONCE 08/29/18 18:00 08/29/18 18:01 DC 08/29/18 17:42 40 MG Allergies Allergies Allergies Coded Allergies Type Severity Reaction Last Updated Verified No Known Drug Allergies 09/23/17 No Physical Exam Physical Exam Constitutional: Well developed, well nourished, no acute distress, non-toxic appearance. [] HENT: Normocephalic, atraumatic, bilateral external ears normal, oropharynx moist, no oral exudates, nose normal. [] Eyes: PERRLA, EOMI, conjunctiva normal, no discharge. [] Neck: Normal range of motion, no tenderness, supple, no stridor. [] Cardiovascular:Heart rate regular rhythm, no murmur [] Lungs & Thorax: Bilateral breath sounds clear to auscultation [] Abdomen: Bowel sounds normal, soft, no tenderness, no masses, no pulsatile masses. [] Skin: Warm, dry, no erythema, no rash. [] Back: No tenderness, no CVA tenderness. [] Extremities: No tenderness, no cyanosis, no clubbing, ROM intact, no edema. [] Neurologic: Alert and oriented X 3, normal motor function, normal sensory function, no focal deficits noted. [] Psychologic: Affect normal, judgement normal, mood normal. [] Current Patient Data Vital Signs Vital Signs Date Time Temp Pulse Resp B/P (MAP) Pulse Ox O2 Delivery O2 Flow Rate FiO2 08/29/18 18:27 72 20 106/62 (77) 97 Room Air 08/29/18 16:57 98.0 98.0 Lab Values Laboratory Tests Test 08/29/18 17:33 White Blood Count 9.3 x10^3/uL (4.0-11.0) Red Blood Count 3.90 x10^6/uL (3.50-5.40) Hemoglobin 13.5 g/dL (12.0-15.5) Hematocrit 37.7 % (36.0-47.0) Mean Corpuscular Volume 97 fL (79-100) Mean Corpuscular Hemoglobin 35 pg (25-35) Mean Corpuscular Hemoglobin Concent 36 g/dL (31-37) Red Cell Distribution Width 13.2 % (11.5-14.5) Platelet Count 303 x10^3/uL (140-400) Neutrophils (%) (Auto) 56 % (31-73) Lymphocytes (%) (Auto) 36 % (24-48) Monocytes (%) (Auto) 5 % (0-9) Eosinophils (%) (Auto) 2 % (0-3) Basophils (%) (Auto) 1 % (0-3) Neutrophils # (Auto) 5.2 x10^3uL (1.8-7.7) Lymphocytes # (Auto) 3.3 x10^3/uL (1.0-4.8) Monocytes # (Auto) 0.4 x10^3/uL (0.0-1.1) Eosinophils # (Auto) 0.2 x10^3/uL (0.0-0.7) Basophils # (Auto) 0.1 x10^3/uL (0.0-0.2) Prothrombin Time 14.1 SEC (11.7-14.0) H Prothrombin Time INR 1.1 (0.8-1.1) D-Dimer (Eileen) < 0.27 ug/mlFEU Sodium Level 144 mmol/L (136-145) Potassium Level 3.6 mmol/L (3.5-5.1) Chloride Level 105 mmol/L (98-107) Carbon Dioxide Level 27 mmol/L (21-32) Anion Gap 12 (6-14) Blood Urea Nitrogen 10 mg/dL (7-20) Creatinine 0.7 mg/dL (0.6-1.0) Estimated GFR (Cockcroft-Gault) 85.1 BUN/Creatinine Ratio 14 (6-20) Glucose Level 101 mg/dL (70-99) H Calcium Level 9.0 mg/dL (8.5-10.1) Magnesium Level 1.9 mg/dL (1.8-2.4) Total Bilirubin 0.2 mg/dL (0.2-1.0) Aspartate Amino Transferase (AST) 21 U/L (15-37) Alanine Aminotransferase (ALT) 33 U/L (14-59) Alkaline Phosphatase 51 U/L (46-116) Troponin I Quantitative < 0.017 ng/mL (0.000-0.055) TT-Sgc-V-Type Natriuretic Peptide 47 pg/mL (0-124) Total Protein 7.2 g/dL (6.4-8.2) Albumin 3.8 g/dL (3.4-5.0) Albumin/Globulin Ratio 1.1 (1.0-1.7) Lipase 114 U/L (73-393) Laboratory Tests 08/29/18 17:33 Laboratory Tests 08/29/18 17:33 EKG EKG EKG shows normal sinus rhythm, no ST elevations, rate of 77 bpm, left axis deviation, normal QTC at 445 ms[] Radiology/Procedures Radiology/Procedures [] Course & Med Decision Making Course & Med Decision Making Pertinent Labs and Imaging studies reviewed. (See chart for details) He course: Patient arrived, placed in bed, tolerated exam well. Patient care endorsed to Dr. Pereyra at 1800 with labs and imaging pending.[ [place]: trop neg x one. ddimer neg cxr eng. sign out received. atypical painp er report. i agree after talking to pateint in detail. i recommended repeat troponin in 3 hours to r/o mi. she thinks it was just anxiety and would like to go home. she agrees to sign out ama. she thinks it is gerd and anxiety she is aware of risk of missed mi up to and including she is of sound mind and repeated back to me the risks. she is signed out ama ] Dragon Disclaimer Dragon Disclaimer This electronic medical record was generated, in whole or in part, using a voice recognition dictation system. Departure Departure Impression: Primary Impression: Chest pain Disposition: 07 AGAINST MEDICAL ADVICE Condition: STABLE Referrals: HOANG KELLER MD (PCP) MALINDA POLANCO DO Aug 29, 2018 17:28 KELLIE PEREYRA MD Aug 29, 2018 18:42
[2018-08-29 17:43] LABS: BASO # 0.1 x10^3/uL (0.0-0.2); BASO % 1 % (0-3); EOS # 0.2 x10^3/uL (0.0-0.7); EOS % 2 % (0-3); HEMATOCRIT 37.7 % (36.0-47.0); HEMOGLOBIN 13.5 g/dL (12.0-15.5); LYMPH # 3.3 x10^3/uL (1.0-4.8); LYMPH % 36 % (24-48); MEAN CORPUSCULAR HEMOGLOBIN 35 pg (25-35); MEAN CORPUSCULAR HGB CONC 36 g/dL (31-37); MEAN CORPUSCULAR VOLUME 97 fL (79-100); MONO # 0.4 x10^3/uL (0.0-1.1); MONO % 5 % (0-9); NEUT # 5.2 x10^3uL (1.8-7.7); NEUT % 56 % (31-73); PLATELET COUNT 303 x10^3/uL (140-400); RED CELL DISTRIBUTION WIDTH 13.2 % (11.5-14.5); WHITE BLOOD COUNT 9.3 x10^3/uL (4.0-11.0)
[2018-08-29 17:50] LABS: PROTHROMBIN TIME PATIENT 14.1 SEC (11.7-14.0)
[2018-08-29 17:53] LABS: CREATININE 0.7 mg/dL (0.6-1.0); GFR 85.1; POTASSIUM 3.6 mmol/L (3.5-5.1)
[2018-08-29 17:57] LABS: D-DIMER < 0.27 ug/mlFEU (0.00-0.50)
[2018-08-29 17:58] LABS: ALBUMIN 3.8 g/dL (3.4-5.0); ALBUMIN/GLOBULIN RATIO 1.1 (1.0-1.7); MAGNESIUM 1.9 mg/dL (1.8-2.4); TOTAL BILIRUBIN 0.2 mg/dL (0.2-1.0); TOTAL PROTEIN 7.2 g/dL (6.4-8.2)
[2018-08-29] MEDS ORDERED: ASPIRIN CHEWABLE 81 MG TABLET. PO ONE (18:00)
[2018-08-29] MEDS ORDERED: PANTOPRAZOLE IV PUSH 40 MG VIAL. IVP ONE (18:00)
--- NOTE | 2018-08-29 18:00 | RAD ---
EXAM: Chest, single view. HISTORY: Chest pain. COMPARISON: 05/01/2018 FINDINGS: A frontal view the chest obtained. There is no infiltrate, pleural effusion or pneumothorax. The heart is normal in size. IMPRESSION: No acute pulmonary finding. Electronically signed by: Rula Mujica MD (08/29/2018 5:57 PM) [facility]
[2018-08-29 18:27] VITALS: BP 106/62
--- NOTE | 2018-08-30 17:52 | EKG ---
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
== END 2018-08-29 18:45 | disposition left against medical advice (07) ==
LOC: ER 16:46
DX: R07.89 Other chest pain (principal); F41.9 Anxiety disorder, unspecified; E78.00 Pure hypercholesterolemia, unspecified; K21.9 Gastro-esophageal reflux disease without esophagitis
CPT/HCPCS: 36415; 71045; 80053; 83690; 83735; 83880; 84484; 85025; 85379; 85610; 93005; 96374; 99284; C9113

== ENCOUNTER 2019-03-21 00:37 | Emergency (ER) | payer OTHER ==
[~2019-03-21] VITALS: Ht 162.6 cm; Wt 68.9 kg
[~2019-03-21 00:37] MED LIST changes: +OMEP20CA10 PO; -OMEP20CA9 PO; +TRAZ-118 PO; -TRAZ-85 PO
[2019-03-21] MEDS ORDERED: LIDO:MAALOX 1:1 20 ML SINGLE DOSE. PO ONE (01:00)
[2019-03-21 01:45] VITALS: BP 107/63
[2019-03-21] MEDS ORDERED: FAMOTIDINE 20 MG/2 ML VIAL IVP ONE ×2 (01:45→02:00)
[2019-03-21 01:55] LABS: BASO # 0.1 x10^3/uL (0.0-0.2); BASO % 0 % (0-3); EOS # 0.2 x10^3/uL (0.0-0.7); EOS % 1 % (0-3); HEMATOCRIT 39.4 % (36.0-47.0); HEMOGLOBIN 13.6 g/dL (12.0-15.5); LYMPH # 2.9 x10^3/uL (1.0-4.8); LYMPH % 16 % (24-48); MEAN CORPUSCULAR HEMOGLOBIN 34 pg (25-35); MEAN CORPUSCULAR HGB CONC 35 g/dL (31-37); MEAN CORPUSCULAR VOLUME 98 fL (79-100); MONO # 1.2 x10^3/uL (0.0-1.1); MONO % 7 % (0-9); NEUT # 14.2 x10^3uL (1.8-7.7); NEUT % 76 % (31-73); PLATELET COUNT 348 x10^3/uL (140-400); RED BLOOD COUNT 4.05 x10^6/uL (3.50-5.40); RED CELL DISTRIBUTION WIDTH 13.1 % (11.5-14.5); WHITE BLOOD COUNT 18.6 x10^3/uL (4.0-11.0)
[2019-03-21] MEDS ORDERED: LORA0.5T96 PO (01:57)
--- NOTE | 2019-03-21 01:57 | PHYS DOC ---
Past Medical History Past Medical History: Anxiety, GERD, High Cholesterol Past Surgical History: Other Additional Past Surgical Histo: colectomy Smoking: Cigarettes Alcohol Use: Occasionally Drug Use: None Adult General Chief Complaint Chief Complaint: ABDOMINAL PAIN HPI HPI 63-year-old female presents with report of acute on chronic epigastric burning sensation, headache, and increased anxiety which started this evening. Patient reports she ate [place] food this evening which she thinks set off her known gastritis. Patient reports she has "severe anxiety regarding her health ". Patient reports she has a history of PVCs and has felt several of them tonight. Patient reports she was just seen by her PCP with a "thorough evaluation" of her blood work. Reports she was found to have a slightly low potassium and magnesium which were replaced. Denies trauma. Denies fever or chills. Patient reports she is also very concerned about the financial costs of being tested in the Emergency Department. Review of Systems Review of Systems Constitutional: Denies fever or chills Eyes: Denies redness or eye pain HENT: Reports nasal congestion; denies sore throat Respiratory: Denies cough or shortness of breath Cardiovascular: Denies chest pain; reports PVCs GI: Reports epigastric abdominal pain; denies nausea or vomiting : Denies dysuria or hematuria; reports urinary frequency Musculoskeletal: Denies back pain or joint pain Integument: Denies rash or skin lesions Neurologic:Reports headache; denies focal weakness or sensory changes Complete systems were reviewed and found to be within normal limits, except as documented in this note. Current Medications Current Medications Current Medications Medications (Trade) Dose Ordered Sig/Shawn Start Time Stop Time Status Last Admin Dose Admin Famotidine (Pepcid Vial) 20 mg 1X ONCE 03/21/19 01:45 03/21/19 01:46 DC Ketorolac Tromethamine (Toradol 15mg Vial) 15 mg 1X ONCE 03/21/19 02:00 03/21/19 02:01 DC 03/21/19 01:58 15 MG Lorazepam (Ativan Inj) 0.5 mg 1X ONCE 03/21/19 02:00 03/21/19 02:01 DC 03/21/19 01:59 0.5 MG Multi-Ingredient Mouthwash/Gargle (Gi Cocktail) 20 ml 1X ONCE 03/21/19 01:00 03/21/19 01:01 DC 03/21/19 00:53 20 ML Sodium Chloride 1,000 ml @ 1,000 mls/hr 1X ONCE 03/21/19 02:00 03/21/19 02:59 DC 03/21/19 01:57 1,000 MLS/HR Allergies Allergies Allergies Coded Allergies Type Severity Reaction Last Updated Verified No Known Drug Allergies 09/23/17 No Physical Exam Physical Exam Constitutional: Well developed, well nourished, anxious, non-toxic appearance HENT: Normocephalic, atraumatic, oropharynx moist, pharynx without erythema or exudate, clear rhinorrhea noted, External ear canals with some cerumen obscuring TMs Eyes: Conjunctiva normal, no discharge Neck: Normal range of motion, no tenderness, supple, no meningeal signs Cardiovascular: Heart rate normal, regular rhythm Lungs & Thorax: Bilateral breath sounds clear to auscultation, no wheezing Abdomen: Soft, mild epigastric tenderness Skin: Warm, dry, no erythema, no rash Back: No tenderness, no CVA tenderness Extremities: No tenderness, ROM intact, no edema Neurologic: Alert and oriented X 3, normal motor function, normal sensory fun ction, no focal deficits noted Psychologic: Affect anxious, judgement normal Current Patient Data Vital Signs Vital Signs Date Time Temp Pulse Resp B/P (MAP) Pulse Ox O2 Delivery O2 Flow Rate FiO2 03/21/19 01:45 79 19 107/63 (78) 96 Room Air 03/21/19 00:50 98.3 98.3 Lab Values Laboratory Tests Test 03/21/19 00:43 03/21/19 01:40 Urine Collection Type Unknown Urine Color Yellow Urine Clarity Clear Urine pH 6.5 Urine Specific [place] 1.020 Urine Protein Negative mg/dL (NEG-TRACE) Urine Glucose (UA) Negative mg/dL (NEG) Urine Ketones (Stick) Negative mg/dL (NEG) Urine Blood Negative (NEG) Urine Nitrite Negative (NEG) Urine Bilirubin Negative (NEG) Urine Urobilinogen Dipstick 0.2 mg/dL (0.2 mg/dL) Urine Leukocyte Esterase Negative (NEG) Urine RBC 3-5 /HPF (0-2) Urine WBC 1-4 /HPF (0-4) Urine Squamous Epithelial Cells Few /LPF Urine Bacteria Few /HPF (0-FEW) White Blood Count 18.6 x10^3/uL (4.0-11.0) H Red Blood Count 4.05 x10^6/uL (3.50-5.40) Hemoglobin 13.6 g/dL (12.0-15.5) Hematocrit 39.4 % (36.0-47.0) Mean Corpuscular Volume 98 fL (79-100) Mean Corpuscular Hemoglobin 34 pg (25-35) Mean Corpuscular Hemoglobin Concent 35 g/dL (31-37) Red Cell Distribution Width 13.1 % (11.5-14.5) Platelet Count 348 x10^3/uL (140-400) Neutrophils (%) (Auto) 76 % (31-73) H Lymphocytes (%) (Auto) 16 % (24-48) L Monocytes (%) (Auto) 7 % (0-9) Eosinophils (%) (Auto) 1 % (0-3) Basophils (%) (Auto) 0 % (0-3) Neutrophils # (Auto) 14.2 x10^3uL (1.8-7.7) H Lymphocytes # (Auto) 2.9 x10^3/uL (1.0-4.8) Monocytes # (Auto) 1.2 x10^3/uL (0.0-1.1) H Eosinophils # (Auto) 0.2 x10^3/uL (0.0-0.7) Basophils # (Auto) 0.1 x10^3/uL (0.0-0.2) Sodium Level 140 mmol/L (136-145) Potassium Level 3.5 mmol/L (3.5-5.1) Chloride Level 100 mmol/L (98-107) Carbon Dioxide Level 29 mmol/L (21-32) Anion Gap 11 (6-14) Blood Urea Nitrogen 27 mg/dL (7-20) H Creatinine 0.9 mg/dL (0.6-1.0) Estimated GFR (Cockcroft-Gault) 63.7 BUN/Creatinine Ratio 30 (6-20) H Glucose Level 115 mg/dL (70-99) H Calcium Level 9.7 mg/dL (8.5-10.1) Magnesium Level 1.8 mg/dL (1.8-2.4) Total Bilirubin 0.2 mg/dL (0.2-1.0) Aspartate Amino Transferase (AST) 15 U/L (15-37) Alanine Aminotransferase (ALT) 25 U/L (14-59) Alkaline Phosphatase 46 U/L (46-116) Creatine Kinase 55 U/L (26-192) Creatine Kinase MB (Mass) 0.5 ng/mL (0.0-3.6) Creatine Kinase MB Relative Index % (0-4) Troponin I Quantitative < 0.017 ng/mL (0.000-0.055) Total Protein 7.2 g/dL (6.4-8.2) Albumin 3.7 g/dL (3.4-5.0) Albumin/Globulin Ratio 1.1 (1.0-1.7) Lipase 134 U/L (73-393) Laboratory Tests 03/21/19 01:40 Laboratory Tests 03/21/19 01:40 EKG EKG @0050 NSR at 74bpm, NO ST elevation, nonspecific t wave inversion V2, LAFB Radiology/Procedures Radiology/Procedures [] Course & Med Decision Making Course & Med Decision Making Pertinent Lab studies reviewed. (See chart for details) Patient presents with history of present illness and physical exam concerning for anxiety attack. Patient also reports acute gastritis. Patient initially concerned and refusing of laboratory evaluation. EKG obtained without acute process. GI cocktail trialed without significant improvement of symptoms. Discussed further with patient subsequently elected to receive laboratory data. Labs obtained and posted to chart. WBC elevated. UA without signs of infection. Symptomatic treatment provided. Patient with interval improvement of symptoms. Patient stable for discharge with outpatient follow-up with PCP. Discussed findings and plan with patient, who acknowledges understanding and agreement. Dragon Disclaimer Dragon Disclaimer This electronic medical record was generated, in whole or in part, using a voice recognition dictation system. Departure Departure Impression: Primary Impression: Epigastric abdominal pain Additional Impressions: Anxiety PVCs (premature ventricular contractions) Headache Leukocytosis Disposition: 01 HOME, SELF-CARE Condition: STABLE Referrals: HOANG KELLER MD (PCP) CHINEDU DIAZ MD, SCOTT S MD Patient Instructions: Anxiety and Panic Attacks, [id number], Gastritis, Adult, [id number], Headache, FAQs, Leukocytosis, Premature Ventricular Contraction Scripts Lorazepam (ATIVAN) 0.5 Mg Tablet 0.5 MG PO TID PRN for ANXIETY, #10 TAB Prov: MARY FIELDS DO 03/21/19 Problem Qualifiers Additional Impressions: Headache Headache type: unspecified Headache chronicity pattern: acute headache Intractability: not intractable Qualified Codes: R51 - Headache Leukocytosis Leukocytosis type: unspecified Qualified Codes: D72.829 - Elevated white blood cell count, unspecified MARY FIELDS DO Mar 21, 2019 01:57
[2019-03-21] MEDS ORDERED: KETOROLAC 15 MG/ML VIAL. IV ONE (02:00)
[2019-03-21] MEDS ORDERED: IV NORMAL SALINE 1000ML BAG 1,000 ML IV ONE (02:00)
[2019-03-21 02:04] LABS: CALCIUM 9.7 mg/dL (8.5-10.1); CREATININE 0.9 mg/dL (0.6-1.0); GFR 63.7; POTASSIUM 3.5 mmol/L (3.5-5.1)
[2019-03-21 02:11] LABS: ALBUMIN 3.7 g/dL (3.4-5.0); ALBUMIN/GLOBULIN RATIO 1.1 (1.0-1.7); MAGNESIUM 1.8 mg/dL (1.8-2.4); TOTAL BILIRUBIN 0.2 mg/dL (0.2-1.0); TOTAL PROTEIN 7.2 g/dL (6.4-8.2)
[2019-03-21 02:18] LABS: CREATINE KINASE 55 U/L (26-192)
[2019-03-21 02:47] LABS: BILIRUBIN,URINE NEGATIVE (NEG); CLARITY,URINE CLEAR; COLOR,URINE YELLOW; NITRITE,URINE NEGATIVE (NEG); PH,URINE 6.5; PROTEIN,URINE NEGATIVE (NEG-TRACE); UROBILINOGEN,URINE 0.2 mg/dL (0.2 mg/dL)
[2019-03-21 02:59] LABS: BACTERIA,URINE FEW /HPF (0-FEW); SQUAMOUS EPITHELIAL CELL,UR FEW /LPF
--- NOTE | 2019-03-22 08:09 | EKG ---
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
== END 2019-03-21 03:05 | disposition home or self-care (01) ==
LOC: ER 00:37
DX: G89.29 Other chronic pain (principal); R10.13 Epigastric pain; F41.9 Anxiety disorder, unspecified; I49.3 Ventricular premature depolarization; D72.829 Elevated white blood cell count, unspecified; R51 Headache; E78.00 Pure hypercholesterolemia, unspecified; K21.9 Gastro-esophageal reflux disease without esophagitis; F17.210 Nicotine dependence, cigarettes, uncomplicated; Z90.49 Acquired absence of other specified parts of digestive tract
CPT/HCPCS: 36415; 80053; 81001; 82553; 83690; 83735; 84484; 85025; 93005; 96374; 96375; 99285; J1885; J2060; J3490; J7030

== ENCOUNTER 2019-05-12 20:14 | Emergency (ER) | payer OTHER ==
[~2019-05-12] VITALS: Ht 165.1 cm; Wt 68.0 kg
[~2019-05-12 20:14] MED LIST changes: +LORA0.5T96 PO; -PANT40TA3 PO; +PANT40TA77 PO
[2019-05-12] MEDS ORDERED: ASPIRIN CHEWABLE 81 MG TABLET. PO ONE (20:30)
[2019-05-12] MEDS ORDERED: NITROGLYCERIN SUBLINGUAL 0.4 MG BOTTLE OF 25. SL PRN (20:30)
[2019-05-12 20:35] LABS: BASO # 0.2 x10^3/uL (0.0-0.2); BASO % 2 % (0-3); EOS # 0.1 x10^3/uL (0.0-0.7); EOS % 1 % (0-3); HEMATOCRIT 38.9 % (36.0-47.0); HEMOGLOBIN 13.4 g/dL (12.0-15.5); LYMPH # 4.1 x10^3/uL (1.0-4.8); LYMPH % 38 % (24-48); MEAN CORPUSCULAR HEMOGLOBIN 34 pg (25-35); MEAN CORPUSCULAR HGB CONC 34 g/dL (31-37); MEAN CORPUSCULAR VOLUME 98 fL (79-100); MONO # 0.7 x10^3/uL (0.0-1.1); MONO % 6 % (0-9); NEUT # 5.6 x10^3/uL (1.8-7.7); NEUT % 53 % (31-73); PLATELET COUNT 319 x10^3/uL (140-400); RED BLOOD COUNT 3.97 x10^6/uL (3.50-5.40); RED CELL DISTRIBUTION WIDTH 13.5 % (11.5-14.5); WHITE BLOOD COUNT 10.6 x10^3/uL (4.0-11.0)
[2019-05-12 20:44] LABS: PROTHROMBIN TIME PATIENT 12.8 SEC (11.7-14.0)
[2019-05-12 20:45] LABS: CALCIUM 9.4 mg/dL (8.5-10.1); CREATININE 0.9 mg/dL (0.6-1.0); GFR 63.7; POTASSIUM 3.6 mmol/L (3.5-5.1)
[2019-05-12 20:51] LABS: ALBUMIN 3.7 g/dL (3.4-5.0); ALBUMIN/GLOBULIN RATIO 1.1 (1.0-1.7); MAGNESIUM 1.4 mg/dL (1.8-2.4); TOTAL BILIRUBIN 0.1 mg/dL (0.2-1.0); TOTAL PROTEIN 7.1 g/dL (6.4-8.2)
--- NOTE | 2019-05-12 21:09 | RAD ---
Chest radiograph 05/12/2019 8:28 PM INDICATION: Chest pain COMPARISON: August 29, 2018 TECHNIQUE: Portable upright frontal view of the chest is provided. FINDINGS: The cardiomediastinal silhouette is within normal limits. There are no pleural effusions. There is no pulmonary vascular congestion. There is no pneumothorax. The lungs are clear. No significant osseous abnormality is identified. IMPRESSION: No acute cardiopulmonary process. Electronically signed by: Esme Capellan MD (05/12/2019 9:06 PM) [facility]
[2019-05-12 21:20] VITALS: BP 160/81
[2019-05-12] MEDS ORDERED: MAGN400T44 PO (21:39)
--- NOTE | 2019-05-12 21:40 | PHYS DOC ---
Past Medical History Past Medical History: Anxiety, GERD, High Cholesterol Past Surgical History: Other Additional Past Surgical Histo: colectomy Alcohol Use: Occasionally Drug Use: None Adult General Chief Complaint Chief Complaint: CHEST PAIN HPI HPI Patient is a 63 year old female with history of anxiety who presents with complaining of chest pain. Patient complaining of sudden onset of substernal chest pain with radiation to the back and associated with palpitations and skipping heartbeat and dizziness and nausea without shortness of and focal neurodeficit. Patient states she had the episode of chest pain previously with diagnose of anxiety. She had recent diagnosis of hypomagnesemia and treated with oral magnesium. Patient admitted to drink one or 2 shots of alcohol every day. Review of Systems Review of Systems Constitutional: Denies fever or chills [] Eyes: Denies change in visual acuity, redness, or eye pain [] HENT: Denies nasal congestion or sore throat [] Respiratory: Denies cough or shortness of breath [] Cardiovascular: No additional information not addressed in HPI [] GI: Denies abdominal pain, nausea, vomiting, bloody stools or diarrhea [] : Denies dysuria or hematuria [] Musculoskeletal: Denies back pain or joint pain [] Integument: Denies rash or skin lesions [] Neurologic: Denies headache, focal weakness or sensory changes [] Endocrine: Denies polyuria or polydipsia [] All other systems were reviewed and found to be within normal limits, except as documented in this note. Current Medications Current Medications Current Medications Medications (Trade) Dose Ordered Sig/[facility] Start Time Stop Time Status Last Admin Dose Admin Aspirin (Children'S Aspirin) 324 mg 1X ONCE 05/12/19 20:30 05/12/19 20:31 DC 05/12/19 20:29 324 MG Magnesium Oxide (Magnesium Oxide) 800 mg 1X ONCE 05/12/19 21:45 05/12/19 21:46 DC 05/12/19 22:02 800 MG Nitroglycerin (Nitrostat) 0.4 mg PRN Q5MIN PRN 05/12/19 20:30 05/12/19 22:05 DC 05/12/19 20:29 0.4 MG Allergies Allergies Allergies Coded Allergies Type Severity Reaction Last Updated Verified No Known Drug Allergies 09/23/17 No Physical Exam Physical Exam Constitutional: Well developed, well nourished,mild distress, non-toxic appearance. [] HENT: Normocephalic, atraumatic, oropharynx moist. Eyes: PERRLA, EOMI, conjunctiva normal, no discharge. [] Neck: Normal range of motion, no tenderness, supple, no stridor. [] Cardiovascular:Heart rate regular rhythm, no murmur [] Lungs & Thorax: Bilateral breath sounds clear to auscultation [] Abdomen: Bowel sounds normal, soft, no tenderness, no masses, no pulsatile masses. [] Skin: Warm, dry, no erythema, no rash. [] Back: No tenderness, no CVA tenderness. [] Extremities: No tenderness, no cyanosis, no clubbing, ROM intact, no edema. [] Neurologic: Alert and oriented X 3, normal motor function, normal sensory function, no focal deficits noted. [] Psychologic: Affect anxious, judgement normal, mood normal. [] Current Patient Data Vital Signs Vital Signs Date Time Temp Pulse Resp B/P (MAP) Pulse Ox O2 Delivery O2 Flow Rate FiO2 05/12/19 21:20 68 160/81 (107) 97 Room Air 05/12/19 20:15 98.5 17 98.5 Lab Values Laboratory Tests Test 05/12/19 20:25 White Blood Count 10.6 x10^3/uL (4.0-11.0) Red Blood Count 3.97 x10^6/uL (3.50-5.40) Hemoglobin 13.4 g/dL (12.0-15.5) Hematocrit 38.9 % (36.0-47.0) Mean Corpuscular Volume 98 fL (79-100) Mean Corpuscular Hemoglobin 34 pg (25-35) Mean Corpuscular Hemoglobin Concent 34 g/dL (31-37) Red Cell Distribution Width 13.5 % (11.5-14.5) Platelet Count 319 x10^3/uL (140-400) Neutrophils (%) (Auto) 53 % (31-73) Lymphocytes (%) (Auto) 38 % (24-48) Monocytes (%) (Auto) 6 % (0-9) Eosinophils (%) (Auto) 1 % (0-3) Basophils (%) (Auto) 2 % (0-3) Neutrophils # (Auto) 5.6 x10^3/uL (1.8-7.7) Lymphocytes # (Auto) 4.1 x10^3/uL (1.0-4.8) Monocytes # (Auto) 0.7 x10^3/uL (0.0-1.1) Eosinophils # (Auto) 0.1 x10^3/uL (0.0-0.7) Basophils # (Auto) 0.2 x10^3/uL (0.0-0.2) Prothrombin Time 12.8 SEC (11.7-14.0) Prothrombin Time INR 1.0 (0.8-1.1) Sodium Level 143 mmol/L (136-145) Potassium Level 3.6 mmol/L (3.5-5.1) Chloride Level 104 mmol/L (98-107) Carbon Dioxide Level 26 mmol/L (21-32) Anion Gap 13 (6-14) Blood Urea Nitrogen 14 mg/dL (7-20) Creatinine 0.9 mg/dL (0.6-1.0) Estimated GFR (Cockcroft-Gault) 63.7 BUN/Creatinine Ratio 16 (6-20) Glucose Level 104 mg/dL (70-99) H Calcium Level 9.4 mg/dL (8.5-10.1) Magnesium Level 1.4 mg/dL (1.8-2.4) L Total Bilirubin 0.1 mg/dL (0.2-1.0) L Aspartate Amino Transferase (AST) 17 U/L (15-37) Alanine Aminotransferase (ALT) 26 U/L (14-59) Alkaline Phosphatase 45 U/L (46-116) L Creatine Kinase 62 U/L (26-192) Troponin I Quantitative < 0.017 ng/mL (0.000-0.055) AG-Ieo-B-Type Natriuretic Peptide 189 pg/mL (0-124) H Total Protein 7.1 g/dL (6.4-8.2) Albumin 3.7 g/dL (3.4-5.0) Albumin/Globulin Ratio 1.1 (1.0-1.7) Lipase 122 U/L (73-393) Laboratory Tests 05/12/19 20:25 Laboratory Tests 05/12/19 20:25 EKG EKG EKG interpreted by me. EKG at 2018 showed sinus rhythm at rate of 79 with PVCs, left atrial abnormality, abnormal left axis deviation, left anterior fascicular block, no acute ST and T-wave abnormalities.[] Radiology/Procedures Radiology/Procedures [][facility] [address] [place] [address] IMAGING REPORT Signed PATIENT: MELA CAMPBELL ACCOUNT: [id number] : 1955 LOCATION: ER AGE: 63 SEX: F EXAM STATUS: REG ER ORD. PHYSICIAN: SERGIO TRISTAN MD REASON: chest pain PROCEDURE: PORTABLE CHEST 1V Chest radiograph 05/12/2019 8:28 PM INDICATION: Chest pain COMPARISON: August 29, 2018 TECHNIQUE: Portable upright frontal view of the chest is provided. FINDINGS: The cardiomediastinal silhouette is within normal limits. There are no pleural effusions. There is no pulmonary vascular congestion. There is no pneumothorax. The lungs are clear. No significant osseous abnormality is identified. IMPRESSION: No acute cardiopulmonary process. Electronically signed by: Ramiro Fox MD (05/12/2019 9:06 PM) [facility] DICTATED and SIGNED BY: RAMIRO FOX MD DATE: 05/12/192105 Course & Med Decision Making Course & Med Decision Making Pertinent Labs and Imaging studies reviewed. (See chart for details) Evaluation of patient in ER showed 64-year-old female patient with history of anxiety and multiple hospitalization with chest pain presented to ER with complaining of chest pain. Patient had unremarkable labs and EKG and chest x- ray. Patient felt better while she was in ER. Patient had magnesium of 1.4 and prescription for magnesium was given and was advised to follow up with her primary care physician with pending Holter monitor in few days. Dragon Disclaimer Dragon Disclaimer This electronic medical record was generated, in whole or in part, using a voice recognition dictation system. Departure Departure Impression: Primary Impression: Anxiety Additional Impressions: Chest pain Hypomagnesemia Alcohol abuse Disposition: HOME, SELF-CARE (at 2137) Condition: IMPROVED Referrals: HOANG KELLER MD (PCP) Patient Instructions: Alcohol Problems, Anxiety and Panic Attacks, Chest Pain (Nonspecific), Hypomagnesemia Additional Instructions: Drink plenty of liquids Follow-up with your primary care physician in 3-5 days Return to ER if not getting better Take 2 pills of magnesium for the next 3 days and then take one pill by mouth every day Scripts Magnesium Oxide (Magnesium Oxide) 400 Mg Tablet 400 MG PO DAILY, #14 TAB Prov: SERGIO TRISTAN MD 05/12/19 The HEART Score for CP Pts HEART Score for Chest Pain: HEART Score for Chest Pain Response (Comments) Value History Slighlty/Non-Suspicious 0 ECG Nonspecific Repolarizatio 1 Age >45 - < 65 1 Risk Factors 1 or 2 Risk Factors 1 Troponin < Normal Limit 0 Total 3 Risk Factors: Risk Factors: DM, Current or recent (<one month) smoker, HTN, HLP, family history of CAD, obesity. Risk Scores: Score 0 - 3: 2.5% MACE over next 6 weeks - Discharge Home Score 4 - 6: 20.3% MACE over next 6 weeks - Admit for Clinical Observation Score 7 - 10: 72.7% MACE over next 6 weeks - Early Invasive Strategies Problem Qualifiers Additional Impressions: Chest pain Chest pain type: unspecified Qualified Codes: R07.9 - Chest pain, unspecified SERGIO TRISTAN MD May 12, 2019 21:40
[2019-05-12] MEDS ORDERED: MAGNESIUM OXIDE 400 MG TABLET PO ONE (21:45)
--- NOTE | 2019-05-13 06:18 | EKG ---
[facility] [address] [place] [address] Test Date: 2019-05-12 Test Time: 20:18:28 Pat Name: MELA CAMPBELL Department: Room: Gender: F Nurse Informaticist: : 1955 Requested By: SERGIO TRISTAN Order Number: [id number] Reading MD: Measurements Intervals [place] Rate: 79 P: 38 WV: 134 QRS: -38 QRSD: 80 T: 27 QT: 404 QTc: 464 Interpretive Statements SINUS RHYTHM LEFT ATRIAL ABNORMALITY ABNORMAL LEFT AXIS DEVIATION R-S TRANSITION ZONE IN V LEADS DISPLACED TO THE RIGHT LEFT ANTERIOR FASCICULAR BLOCK ABNORMAL ECG RI6.01 No previous ECG available for comparison
== END 2019-05-12 21:50 | disposition home or self-care (01) ==
LOC: ER 20:14
DX: R07.2 Precordial pain (principal); F41.9 Anxiety disorder, unspecified; E83.42 Hypomagnesemia; R42 Dizziness and giddiness; F10.10 Alcohol abuse, uncomplicated; Y90.9 Presence of alcohol in blood, level not specified; R11.0 Nausea; R00.2 Palpitations; E78.00 Pure hypercholesterolemia, unspecified; K21.9 Gastro-esophageal reflux disease without esophagitis; Z90.49 Acquired absence of other specified parts of digestive tract
CPT/HCPCS: 36415; 71045; 80053; 82550; 83690; 83735; 83880; 84484; 85025; 85610; 93005; 99285-25

== ENCOUNTER 2019-10-14 08:42 | Emergency (ER) | payer OTHER ==
[~2019-10-14 08:42] MED LIST changes: +MAGN400T44 PO; -OMEP20CA10 PO; +OMEP20CA16 PO
--- NOTE | 2019-10-14 09:17 | EKG ---
[facility] [address] [place] [address] Test Date: 2019-10-14 Test Time: 09:11:48 Pat Name: MELA CAMPBELL Department: Room: Gender: F Funding Specialist: : 1955 Requested By: ROCKY COLON Order Number: [id number] Reading MD: Measurements Intervals [place] Rate: 79 P: 48 DC: 144 QRS: -44 QRSD: 76 T: 19 QT: 360 QTc: 414 Interpretive Statements SINUS RHYTHM ABNORMAL LEFT AXIS DEVIATION LEFT ANTERIOR FASCICULAR BLOCK T ABNORMALITY IN ANTERIOR LEADS ABNORMAL ECG RI6.01 No previous ECG available for comparison
[2019-10-14 09:32] LABS: BASO % 0 % (0-3); EOS % 0 % (0-3); HEMOGLOBIN 14.5 g/dL (12.0-15.5); LYMPH % 17 % (24-48); MEAN CORPUSCULAR HEMOGLOBIN 34 pg (25-35); MEAN CORPUSCULAR HGB CONC 34 g/dL (31-37); MEAN CORPUSCULAR VOLUME 98 fL (79-100); MONO # 0.3 x10^3/uL (0.0-1.1); MONO % 5 % (0-9); NEUT # 4.8 x10^3/uL (1.8-7.7); NEUT % 78 % (31-73); PLATELET COUNT 313 x10^3/uL (140-400); RED BLOOD COUNT 4.29 x10^6/uL (3.50-5.40); RED CELL DISTRIBUTION WIDTH 13.6 % (11.5-14.5); WHITE BLOOD COUNT 6.2 x10^3/uL (4.0-11.0)
[2019-10-14 09:34] LABS: BILIRUBIN,URINE NEGATIVE (NEG); CLARITY,URINE CLEAR; COLOR,URINE YELLOW; NITRITE,URINE NEGATIVE (NEG); PROTEIN,URINE NEGATIVE (NEG-TRACE); UROBILINOGEN,URINE 0.2 mg/dL (0.2 mg/dL)
[2019-10-14 09:44] LABS: CALCIUM 9.5 mg/dL (8.5-10.1); CREATININE 0.9 mg/dL (0.6-1.0); GFR 63.4; POTASSIUM 3.8 mmol/L (3.5-5.1)
[2019-10-14 09:50] LABS: ALBUMIN/GLOBULIN RATIO 1.2 (1.0-1.7); TOTAL BILIRUBIN 0.4 mg/dL (0.2-1.0); TOTAL PROTEIN 7.4 g/dL (6.4-8.2)
[2019-10-14 09:59] LABS: BACTERIA,URINE 0 /HPF (0-FEW); SQUAMOUS EPITHELIAL CELL,UR MOD /LPF
[2019-10-14] MEDS ORDERED: fentaNYL PF VIAL 100 MCG/2 ML VIAL IVP ONE (10:15)
[2019-10-14] MEDS ORDERED: ONDANSETRON PF 4 MG/2 ML VIAL. IVP ONE (10:15)
--- NOTE | 2019-10-14 10:17 | PHYS DOC ---
Past Medical History Past Medical History: Anxiety, GERD, High Cholesterol Past Surgical History: Other Additional Past Surgical Histo: colectomy Alcohol Use: Occasionally Drug Use: None Adult General Chief Complaint Chief Complaint: ABDOMINAL PAIN HPI HPI Patient is a 64 year old female who presents with hx of GERD who presents with epigastric pain continuous for the past 4 days and intermittent daily diarrhea. Pain is described as sharp and radiates to back and is rated moderate to severe. Pain is worse with eating and palpation. Denies nausea vomiting, melena or hematochezia. Stools are watery to loose. Patient's taken [id number] antacids without relief of symptoms. No history of C. difficile, recent travel or antibiotics. She also reports lower chest pressure. No shortness breath, cough, fever chills or sweats. Denies increased leg swelling. No other acute symptoms or complaints. [] Review of Systems Review of Systems ROS as per HPI All other systems were reviewed and found to be within normal limits, except as documented in this note. Current Medications Current Medications Current Medications Medications (Trade) Dose Ordered Sig/[facility] Start Time Stop Time Status Last Admin Dose Admin Fentanyl Citrate (Fentanyl 2ml Vial) 75 mcg 1X ONCE 10/14/19 10:15 10/14/19 10:16 DC 10/14/19 10:19 75 MCG Info (CONTRAST GIVEN -- Rx MONITORING) 1 each PRN DAILY PRN 10/14/19 10:30 10/16/19 10:29 Iohexol (Omnipaque 300 Mg/ml) 75 ml 1X ONCE 10/14/19 10:30 10/14/19 10:31 DC 10/14/19 10:29 75 ML Ondansetron HCl (Zofran) 4 mg 1X ONCE 10/14/19 10:15 10/14/19 10:16 DC 10/14/19 10:19 4 MG Allergies Allergies Allergies Coded Allergies Type Severity Reaction Last Updated Verified No Known Drug Allergies 09/23/17 No Physical Exam Physical Exam Constitutional: Well developed, well nourished, no acute distress, non-toxic appearance. [] HENT: Normocephalic, atraumatic, bilateral external ears normal, oropharynx moist, nose normal. [] Eyes: PERRLA, EOMI, conjunctiva normal. [] Neck: Normal range of motion. [] Cardiovascular:Heart rate regular rhythm, no murmur [] Lungs & Thorax: Bilateral breath sounds clear to auscultation [] Abdomen: Bowel sounds normal, soft, epigastric pain/tenderness. [] Skin: Warm, dry, no erythema. [] Back: No tenderness. [] Extremities: No tenderness, no edema. [] Neurologic: Alert and oriented X 3, normal motor function, normal sensory function, no focal deficits noted. [] Psychologic: Affect normal, judgement normal, mood normal. [] Current Patient Data Vital Signs Vital Signs Date Time Temp Pulse Resp B/P (MAP) Pulse Ox O2 Delivery O2 Flow Rate FiO2 10/14/19 08:58 99.2 81 20 122/75 (91) 98 Room Air 99.2 Lab Values Laboratory Tests Test 10/14/19 09:01 10/14/19 09:10 White Blood Count 6.2 x10^3/uL (4.0-11.0) Red Blood Count 4.29 x10^6/uL (3.50-5.40) Hemoglobin 14.5 g/dL (12.0-15.5) Hematocrit 42.0 % (36.0-47.0) Mean Corpuscular Volume 98 fL (79-100) Mean Corpuscular Hemoglobin 34 pg (25-35) Mean Corpuscular Hemoglobin Concent 34 g/dL (31-37) Red Cell Distribution Width 13.6 % (11.5-14.5) Platelet Count 313 x10^3/uL (140-400) Neutrophils (%) (Auto) 78 % (31-73) H Lymphocytes (%) (Auto) 17 % (24-48) L Monocytes (%) (Auto) 5 % (0-9) Eosinophils (%) (Auto) 0 % (0-3) Basophils (%) (Auto) 0 % (0-3) Neutrophils # (Auto) 4.8 x10^3/uL (1.8-7.7) Lymphocytes # (Auto) 1.0 x10^3/uL (1.0-4.8) Monocytes # (Auto) 0.3 x10^3/uL (0.0-1.1) Eosinophils # (Auto) 0.0 x10^3/uL (0.0-0.7) Basophils # (Auto) 0.0 x10^3/uL (0.0-0.2) Sodium Level 140 mmol/L (136-145) Potassium Level 3.8 mmol/L (3.5-5.1) Chloride Level 100 mmol/L (98-107) Carbon Dioxide Level 29 mmol/L (21-32) Anion Gap 11 (6-14) Blood Urea Nitrogen 8 mg/dL (7-20) Creatinine 0.9 mg/dL (0.6-1.0) Estimated GFR (Cockcroft-Gault) 63.4 BUN/Creatinine Ratio 9 (6-20) Glucose Level 101 mg/dL (70-99) H Calcium Level 9.5 mg/dL (8.5-10.1) Total Bilirubin 0.4 mg/dL (0.2-1.0) Aspartate Amino Transferase (AST) 21 U/L (15-37) Alanine Aminotransferase (ALT) 31 U/L (14-59) Alkaline Phosphatase 50 U/L (46-116) Troponin I Quantitative < 0.017 ng/mL (0.000-0.055) Total Protein 7.4 g/dL (6.4-8.2) Albumin 4.0 g/dL (3.4-5.0) Albumin/Globulin Ratio 1.2 (1.0-1.7) Lipase 57 U/L (73-393) L Urine Collection Type Unknown Urine Color Yellow Urine Clarity Clear Urine pH 7.0 Urine Specific [place] 1.010 Urine Protein Negative mg/dL (NEG-TRACE) Urine Glucose (UA) Negative mg/dL (NEG) Urine Ketones (Stick) Negative mg/dL (NEG) Urine Blood Trace (NEG) Urine Nitrite Negative (NEG) Urine Bilirubin Negative (NEG) Urine Urobilinogen Dipstick 0.2 mg/dL (0.2 mg/dL) Urine Leukocyte Esterase Trace (NEG) Urine RBC 1-2 /HPF (0-2) Urine WBC 5-10 /HPF (0-4) Urine Squamous Epithelial Cells Mod /LPF Urine Bacteria 0 /HPF (0-FEW) Urine Mucus Slight /LPF Laboratory Tests 10/14/19 09:01 Laboratory Tests 10/14/19 09:01 EKG EKG [EKG: reviewed] Radiology/Procedures Radiology/Procedures [CT abd/pelvis: Dilated small bowel loops without evidence of obstruction per radiology report] Course & Med Decision Making Course & Med Decision Making Pertinent Labs and Imaging studies reviewed. (See chart for details) [Abdomen soft, nonsurgical. Patient afebrile, normal white blood cell, no blood in stools. Recommend supportive care, watchful waiting and close PCP follow-up] Jhony Disclaimer Dragon Disclaimer This electronic medical record was generated, in whole or in part, using a voice recognition dictation system. Departure Departure Impression: Primary Impression: Enteritis Additional Impression: Abdominal pain Disposition: HOME, SELF-CARE Condition: STABLE Referrals: HOANG KELLER MD (PCP) Additional Instructions: You were evaluated in the ED for upper abdominal pain area. Lab and imaging studies performed and are consistent with enteritis which is an infection of your small bowel. Please continue home medications and take her coat on as directed for abdominal pain. Follow-up with your PCP early next week for reevaluation. Return to the ED if new or concerning symptoms. Scripts Hydrocodone/Acetaminophen (Hydrocodone-Acetamin 5-325 mg) 1 Each Tablet 1 EACH PO Q4-6HRS, #10 TAB Prov: ROCKY COLON DO 10/14/19 Problem Qualifiers ROCKY COLON DO Oct 14, 2019 10:17
[2019-10-14] MEDS ORDERED: CONTRAST GIVEN. MC PRN (10:30)
[2019-10-14] MEDS ORDERED: IOHEXOL 300 MG/ML 100ML VIAL. IV ONE (10:30)
--- NOTE | 2019-10-14 11:09 | RAD ---
CT study of the abdomen and pelvis with contrast Clinical indications: Epigastric pain. TECHNIQUE: After IV infusion of 75 cc of Omnipaque 300, helical CT scanning of the abdomen and pelvis was performed. No GI contrast was administered. This may decrease the sensitivity to detect GI tract pathology. PQRS compliance Statement One or more of the following individualized dose reduction techniques were utilized for this study: 1. Automated exposure control 2. Adjustment of the mA and/or kV according to patient size 3. Use of iterative reconstruction technique COMPARISON: March 29, 2018. FINDINGS: No hepatic mass is seen. Spleen is not enlarged. No focal enlargement of the pancreas is seen. The pancreas enhances homogeneously. No peripancreatic inflammation or free fluid is evident. No adrenal mass is evident. No renal mass or hydronephrosis or hydroureter is seen. Urinary bladder wall is smooth. No focal aneurysmal dilatation of the abdominal aorta is seen. No enlarged abdominal or pelvic lymphadenopathy is evident. Sigmoid diverticulosis is seen without diverticulitis. Postsurgical changes are seen at the base of the cecum consistent with an appendectomy. There is mild diffuse dilatation of small bowel loops filled with fluid without caliber change. Therefore, no obstructive bowel pattern is seen. Findings may be seen with enteritis. The terminal ileum is unremarkable. No free intraperitoneal air or free intraperitoneal fluid or mesenteric edema is seen. The stomach is nondistended. Evaluation for gastric wall thickening is difficult therefore. No lung base consolidation is seen. There is a grade 1 anterolisthesis of L5-S1 secondary to bilateral spondylolysis of L5. No lytic process is seen. IMPRESSION: Diffuse mild dilatation of small bowel filled with fluid. No caliber change is seen to indicate a small bowel obstruction. The findings may be seen with enteritis. Grade 1 anterolisthesis of L5-S1 secondary to bilateral spondylolysis of L5. Anterolisthesis is stable. Electronically signed by: Andres Cadena MD (10/14/2019 11:06 AM) [id number]
[2019-10-14] MEDS ORDERED: HYDR-2759 PO (13:18)
[2019-10-14 13:45] VITALS: BP 119/78
--- NOTE | 2019-10-14 13:46 | RAD ---
CHEST AP ONLY 10/14/2019 1:08 PM INDICATION: Shortness of air COMPARISON: 05/12/2019 TECHNIQUE: Portable frontal view of the chest is provided. FINDINGS: The cardiomediastinal silhouette is similar in appearance. Lungs are clear. There are no significant pleural effusions. There is no pulmonary vascular congestion. No pneumothorax. IMPRESSION: There is no acute cardiopulmonary process. Electronically signed by: Esme Capellan MD (10/14/2019 1:42 PM) [id number]
== END 2019-10-14 14:58 | disposition home or self-care (01) ==
LOC: ER 08:42
DX: K52.9 Noninfective gastroenteritis and colitis, unspecified (principal); K21.9 Gastro-esophageal reflux disease without esophagitis; E78.00 Pure hypercholesterolemia, unspecified; F41.9 Anxiety disorder, unspecified; Z90.49 Acquired absence of other specified parts of digestive tract
CPT/HCPCS: 36415; 71045; 74177; 80053; 81001; 83690; 84484; 85025; 87086; 93005; 96374; 96375; 99285; J2405; J3010; Q9967

== ENCOUNTER 2019-12-07 17:42 | Emergency (ER) | payer OTHER ==
[~2019-12-07] VITALS: Ht 165.1 cm; Wt 71.0 kg
[~2019-12-07 17:42] MED LIST changes: +HYDR-2759 PO
--- NOTE | 2019-12-07 18:27 | PHYS DOC ---
Past Medical History Past Medical History: Anxiety, GERD, High Cholesterol, Hypertension, Other Additional Past Medical Histor: PALPITATIONS (KERON FLORES APRN) Past Surgical History: Appendectomy, Cholecystectomy, , Other Additional Past Surgical Histo: PARTIAL COLECTOMY (KERON FLORES APRN) Smoking Status: Current Every Day Smoker Additional Information: 1/2 PACK/DAY Alcohol Use: Occasionally Drug Use: None (KERON FLORES APRN) Attending Signature I have participated in the care of this patient and I have reviewed and agree with all pertinent clinical information above including history, exam, and recommendations. (ROSI JULIAN MD) Adult General Chief Complaint Chief Complaint: Palpitations HPI HPI Patient is a 64 year old female who presents with palpitations. He states last time that she's had palpitations her magnesium potassium was low. She denies chest pain, shortness of air, fever, numbness or tingling, headache, LOC, dizzi ness, visual changes, abdominal pain, nausea, vomiting, diarrhea. Patient states she's had palpitations for the last 2 days. She states she went to her primary care physician who sent her to the emergency room to have labs and EKG done. Patient is very anxious. Patient has a history of every day smoker, high cholesterol, hypertension, GERD, palpitations. (KERON FLORES APRN) Review of Systems Review of Systems Cardiovascular: palpitations All other systems were reviewed and found to be within normal limits, except as documented in this note. (KERON FLROES APRN) Current Medications Current Medications Current Medications Medications (Trade) Dose Ordered Sig/Shawn Start Time Stop Time Status Last Admin Dose Admin Acetaminophen (Tylenol) 1,000 mg 1X ONCE 12/07/19 18:30 12/07/19 18:31 DC 12/07/19 18:51 1,000 MG (ROSI JULIAN MD) Allergies Allergies Allergies Coded Allergies Type Severity Reaction Last Updated Verified No Known Drug Allergies 09/23/17 No (ROSI JULIAN MD) Physical Exam Physical Exam Constitutional: Well developed, well nourished, no acute distress, non-toxic appearance. [] HENT: Normocephalic, atraumatic, bilateral external ears normal, oropharynx moist, no oral exudates, nose normal. [] Eyes: PERRLA, EOMI, conjunctiva normal, no discharge. [] Neck: Normal range of motion, no tenderness, supple, no stridor. [] Cardiovascular:Heart rate regular rhythm, no murmur [] Lungs & Thorax: Bilateral breath sounds clear to auscultation [] Abdomen: Bowel sounds normal, soft, no tenderness, no masses, no pulsatile masses. [] Skin: Warm, dry, no erythema, no rash. [] Back: No tenderness, no CVA tenderness. [] Extremities: No tenderness, no cyanosis, no clubbing, ROM intact, no edema. [] Neurologic: Alert and oriented X 3, normal motor function, normal sensory function, no focal deficits noted. [] Psychologic: Affect normal, judgement normal, mood normal. Normal Physical Exam[] (KERON FLORES APRN) Current Patient Data Vital Signs Vital Signs Date Time Temp Pulse Resp B/P (MAP) Pulse Ox O2 Delivery O2 Flow Rate FiO2 12/07/19 20:33 63 18 169/67 (101) 99 Room Air 12/07/19 18:07 99.0 99.0 (ROSI JULIAN MD) Lab Values Laboratory Tests Test 12/07/19 17:53 12/07/19 18:22 12/07/19 18:25 Urine Collection Type Unknown Urine Color Yellow Urine Clarity Clear Urine pH 6.0 Urine Specific [place] 1.010 Urine Protein Negative mg/dL (NEG-TRACE) Urine Glucose (UA) Negative mg/dL (NEG) Urine Ketones (Stick) Negative mg/dL (NEG) Urine Blood Negative (NEG) Urine Nitrite Negative (NEG) Urine Bilirubin Negative (NEG) Urine Urobilinogen Dipstick 0.2 mg/dL (0.2 mg/dL) Urine Leukocyte Esterase Negative (NEG) Urine RBC 0 /HPF (0-2) Urine WBC 0 /HPF (0-4) Urine Bacteria 0 /HPF (0-FEW) Urine Opiates Screen Neg (NEG) Urine Methadone Screen Neg (NEG) Urine Barbiturates Neg (NEG) Urine Phencyclidine Screen Neg (NEG) Urine Amphetamine/Methamphetamine Neg (NEG) Urine Benzodiazepines Screen Pos (NEG) Urine Cocaine Screen Neg (NEG) Urine Cannabinoids Screen Neg (NEG) Urine Ethyl Alcohol Pos (NEG) Sodium Level 143 mmol/L (136-145) Potassium Level 3.9 mmol/L (3.5-5.1) Chloride Level 104 mmol/L (98-107) Carbon Dioxide Level 27 mmol/L (21-32) Anion Gap 12 (6-14) Blood Urea Nitrogen 12 mg/dL (7-20) Creatinine 0.8 mg/dL (0.6-1.0) Estimated GFR (Cockcroft-Gault) 72.7 BUN/Creatinine Ratio 15 (6-20) Glucose Level 90 mg/dL (70-99) Calcium Level 9.3 mg/dL (8.5-10.1) Magnesium Level 1.9 mg/dL (1.8-2.4) Total Bilirubin 0.3 mg/dL (0.2-1.0) Aspartate Amino Transferase (AST) 30 U/L (15-37) Alanine Aminotransferase (ALT) 42 U/L (14-59) Alkaline Phosphatase 45 U/L (46-116) L Total Protein 6.9 g/dL (6.4-8.2) Albumin 3.8 g/dL (3.4-5.0) Albumin/Globulin Ratio 1.2 (1.0-1.7) Lipase 75 U/L (73-393) White Blood Count 8.2 x10^3/uL (4.0-11.0) Red Blood Count 3.80 x10^6/uL (3.50-5.40) Hemoglobin 12.7 g/dL (12.0-15.5) Hematocrit 37.4 % (36.0-47.0) Mean Corpuscular Volume 98 fL (79-100) Mean Corpuscular Hemoglobin 34 pg (25-35) Mean Corpuscular Hemoglobin Concent 34 g/dL (31-37) Red Cell Distribution Width 13.7 % (11.5-14.5) Platelet Count 300 x10^3/uL (140-400) Neutrophils (%) (Auto) 54 % (31-73) Lymphocytes (%) (Auto) 37 % (24-48) Monocytes (%) (Auto) 6 % (0-9) Eosinophils (%) (Auto) 2 % (0-3) Basophils (%) (Auto) 1 % (0-3) Neutrophils # (Auto) 4.4 x10^3/uL (1.8-7.7) Lymphocytes # (Auto) 3.1 x10^3/uL (1.0-4.8) Monocytes # (Auto) 0.5 x10^3/uL (0.0-1.1) Eosinophils # (Auto) 0.1 x10^3/uL (0.0-0.7) Basophils # (Auto) 0.1 x10^3/uL (0.0-0.2) Prothrombin Time 13.0 SEC (11.7-14.0) Prothrombin Time INR 1.0 (0.8-1.1) Troponin I Quantitative < 0.017 ng/mL (0.000-0.055) GT-Vha-S-Type Natriuretic Peptide 107 pg/mL (0-124) Thyroid Stimulating Hormone (TSH) 1.206 uIU/mL (0.358-3.74) Ethyl Alcohol Level < 10 mg/dL (0-10) Laboratory Tests 12/07/19 18:25 Laboratory Tests 12/07/19 18:22 (ROSI JULIAN MD) Lab Values Laboratory Tests Test 12/07/19 17:53 12/07/19 18:22 12/07/19 18:25 Urine Collection Type Unknown Urine Color Yellow Urine Clarity Clear Urine pH 6.0 Urine Specific [place] 1.010 Urine Protein Negative mg/dL (NEG-TRACE) Urine Glucose (UA) Negative mg/dL (NEG) Urine Ketones (Stick) Negative mg/dL (NEG) Urine Blood Negative (NEG) Urine Nitrite Negative (NEG) Urine Bilirubin Negative (NEG) Urine Urobilinogen Dipstick 0.2 mg/dL (0.2 mg/dL) Urine Leukocyte Esterase Negative (NEG) Urine RBC 0 /HPF (0-2) Urine WBC 0 /HPF (0-4) Urine Bacteria 0 /HPF (0-FEW) Urine Opiates Screen Neg (NEG) Urine Methadone Screen Neg (NEG) Urine Barbiturates Neg (NEG) Urine Phencyclidine Screen Neg (NEG) Urine Amphetamine/Methamphetamine Neg (NEG) Urine Benzodiazepines Screen Pos (NEG) Urine Cocaine Screen Neg (NEG) Urine Cannabinoids Screen Neg (NEG) Urine Ethyl Alcohol Pos (NEG) Sodium Level 143 mmol/L (136-145) Potassium Level 3.9 mmol/L (3.5-5.1) Chloride Level 104 mmol/L (98-107) Carbon Dioxide Level 27 mmol/L (21-32) Anion Gap 12 (6-14) Blood Urea Nitrogen 12 mg/dL (7-20) Creatinine 0.8 mg/dL (0.6-1.0) Estimated GFR (Cockcroft-Gault) 72.7 BUN/Creatinine Ratio 15 (6-20) Glucose Level 90 mg/dL (70-99) Calcium Level 9.3 mg/dL (8.5-10.1) Magnesium Level 1.9 mg/dL (1.8-2.4) Total Bilirubin 0.3 mg/dL (0.2-1.0) Aspartate Amino Transferase (AST) 30 U/L (15-37) Alanine Aminotransferase (ALT) 42 U/L (14-59) Alkaline Phosphatase 45 U/L (46-116) L Total Protein 6.9 g/dL (6.4-8.2) Albumin 3.8 g/dL (3.4-5.0) Albumin/Globulin Ratio 1.2 (1.0-1.7) Lipase 75 U/L (73-393) White Blood Count 8.2 x10^3/uL (4.0-11.0) Red Blood Count 3.80 x10^6/uL (3.50-5.40) Hemoglobin 12.7 g/dL (12.0-15.5) Hematocrit 37.4 % (36.0-47.0) Mean Corpuscular Volume 98 fL (79-100) Mean Corpuscular Hemoglobin 34 pg (25-35) Mean Corpuscular Hemoglobin Concent 34 g/dL (31-37) Red Cell Distribution Width 13.7 % (11.5-14.5) Platelet Count 300 x10^3/uL (140-400) Neutrophils (%) (Auto) 54 % (31-73) Lymphocytes (%) (Auto) 37 % (24-48) Monocytes (%) (Auto) 6 % (0-9) Eosinophils (%) (Auto) 2 % (0-3) Basophils (%) (Auto) 1 % (0-3) Neutrophils # (Auto) 4.4 x10^3/uL (1.8-7.7) Lymphocytes # (Auto) 3.1 x10^3/uL (1.0-4.8) Monocytes # (Auto) 0.5 x10^3/uL (0.0-1.1) Eosinophils # (Auto) 0.1 x10^3/uL (0.0-0.7) Basophils # (Auto) 0.1 x10^3/uL (0.0-0.2) Prothrombin Time 13.0 SEC (11.7-14.0) Prothrombin Time INR 1.0 (0.8-1.1) Troponin I Quantitative < 0.017 ng/mL (0.000-0.055) SP-Mdp-Q-Type Natriuretic Peptide 107 pg/mL (0-124) Thyroid Stimulating Hormone (TSH) 1.206 uIU/mL (0.358-3.74) Ethyl Alcohol Level < 10 mg/dL (0-10) Laboratory Tests 12/07/19 18:25 Laboratory Tests 12/07/19 18:22 (KERON FLORES APRN) EKG EKG Sinus Rhythm and no STEMI[] Interpretation Time: [address] Carias (KERON FLORES APRN) Radiology/Procedures Radiology/Procedures [] (KERON FLORES APRN) Impressions: [facility] [address] [place], [place] [id number] IMAGING REPORT Signed PATIENT: MELA CAMPBELL ACCOUNT: [id number] : 1955 LOCATION: ER AGE: 64 SEX: F EXAM STATUS: REG ER ORD. PHYSICIAN: KERON FLORES APRN REASON: palpitation PROCEDURE: CHEST PA & LATERAL Exam: Chest 2 views INDICATION: Palpitations TECHNIQUE: Frontal and lateral views the chest Comparisons: 12/07/2019 FINDINGS: The cardiomediastinal silhouette and pulmonary vessels are within normal limits. The lung and pleural spaces are clear. IMPRESSION: No acute cardiopulmonary process. Electronically signed by: Natalie Rizzo MD (12/07/2019 7:09 PM) [id number] DICTATED and SIGNED BY: NATALIE RIZZO MD DATE: 12/07/19 1909 (KERON FLORES APRN) Course & Med Decision Making Course & Med Decision Making Pertinent Labs and Imaging studies reviewed. (See chart for details) Alert and Oriented. Speaks in full clear sentences. PERRLA. Ambulatory with a steady gait. Skin pink warm and dry. No extremity edema. Lungs are clear to auscultation in all lobes. EKG shows sinus rhythm and no STEMI. Patient is stable and continues to have no chest pain or soa. Patient states she is still feeling the palpitations at times. Patient is stable. Blood work is unremarkable. I have spoken to Dr Julian concerning the patients blood work, exam findings, and plan of care. Patient to follow up with primary care provider. [] (KERON FLORES APRN) Dragon Disclaimer Dragon Disclaimer This electronic medical record was generated, in whole or in part, using a voice recognition dictation system. (KERON FLORES APRN) The HEART Score for CP Pts HEART Score for Chest Pain: HEART Score for Chest Pain Response (Comments) Value History Slighlty/Non-Suspicious 0 ECG Normal 0 Age >45 - < 65 1 Risk Factors >3 Risk Factors or Hx CAD 2 Troponin < Normal Limit 0 Total 3 Risk Factors: Risk Factors: DM, Current or recent (<one month) smoker, HTN, HLP, family history of CAD, obesity. Risk Scores: Score 0 - 3: 2.5% MACE over next 6 weeks - Discharge Home Score 4 - 6: 20.3% MACE over next 6 weeks - Admit for Clinical Observation Score 7 - 10: 72.7% MACE over next 6 weeks - Early Invasive Strategies (KERON FLORES APRN) Departure Departure Impression: Primary Impression: Palpitations Disposition: HOME, SELF-CARE Condition: STABLE Referrals: HOANG KELLER MD (PCP) Patient Instructions: Palpitations, [id number] Additional Instructions: Follow up with primary care provider. If you begin having chest pain return to the ED. Do not drink alcohol with your medications. KERON FLORES APRN Dec 07, 2019 18:27 ROSI JULIAN MD Dec 07, 2019 22:04
[2019-12-07 18:42] LABS: BASO # 0.1 x10^3/uL (0.0-0.2); BASO % 1 % (0-3); EOS # 0.1 x10^3/uL (0.0-0.7); EOS % 2 % (0-3); HEMATOCRIT 37.4 % (36.0-47.0); HEMOGLOBIN 12.7 g/dL (12.0-15.5); LYMPH # 3.1 x10^3/uL (1.0-4.8); LYMPH % 37 % (24-48); MEAN CORPUSCULAR HEMOGLOBIN 34 pg (25-35); MEAN CORPUSCULAR HGB CONC 34 g/dL (31-37); MEAN CORPUSCULAR VOLUME 98 fL (79-100); MONO # 0.5 x10^3/uL (0.0-1.1); MONO % 6 % (0-9); NEUT # 4.4 x10^3/uL (1.8-7.7); NEUT % 54 % (31-73); PLATELET COUNT 300 x10^3/uL (140-400); RED CELL DISTRIBUTION WIDTH 13.7 % (11.5-14.5); WHITE BLOOD COUNT 8.2 x10^3/uL (4.0-11.0)
[2019-12-07 18:47] LABS: CALCIUM 9.3 mg/dL (8.5-10.1); CREATININE 0.8 mg/dL (0.6-1.0); GFR 72.7; POTASSIUM 3.9 mmol/L (3.5-5.1)
[2019-12-07] MEDS: ACETAMINOPHEN 500 MG TABLET PO ONE (18:51)
[2019-12-07 18:52] LABS: ALBUMIN 3.8 g/dL (3.4-5.0); ALBUMIN/GLOBULIN RATIO 1.2 (1.0-1.7); MAGNESIUM 1.9 mg/dL (1.8-2.4); TOTAL BILIRUBIN 0.3 mg/dL (0.2-1.0); TOTAL PROTEIN 6.9 g/dL (6.4-8.2)
[2019-12-07 19:02] LABS: BILIRUBIN,URINE NEGATIVE (NEG); CLARITY,URINE CLEAR; COLOR,URINE YELLOW; NITRITE,URINE NEGATIVE (NEG); PROTEIN,URINE NEGATIVE (NEG-TRACE); UROBILINOGEN,URINE 0.2 mg/dL (0.2 mg/dL)
[2019-12-07 19:08] LABS: BARBITURATES NEG (NEG); BENZODIAZEPINES POS (NEG); CANNABINOIDS NEG (NEG); COCAINE NEG (NEG); METHADONE NEG (NEG); OPIATES NEG (NEG); PHENCYCLIDINE NEG (NEG)
[2019-12-07 19:12] LABS: AMPHETAMINE/METHAMPHETAMINE NEG (NEG)
--- NOTE | 2019-12-07 19:12 | RAD ---
Exam: Chest 2 views INDICATION: Palpitations TECHNIQUE: Frontal and lateral views the chest Comparisons: 12/07/2019 FINDINGS: The cardiomediastinal silhouette and pulmonary vessels are within normal limits. The lung and pleural spaces are clear. IMPRESSION: No acute cardiopulmonary process. Electronically signed by: Natalie Rowell MD (12/07/2019 7:09 PM) [id number]
[2019-12-07 19:40] LABS: BACTERIA,URINE 0 /HPF (0-FEW); RBC,URINE 0 /HPF (0-2); WBC,URINE 0 /HPF (0-4)
[2019-12-07 20:33] VITALS: BP 169/67
--- NOTE | 2019-12-08 06:10 | EKG ---
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
== END 2019-12-07 20:33 | disposition home or self-care (01) ==
LOC: ER 17:42
DX: R00.2 Palpitations (principal); F41.9 Anxiety disorder, unspecified; I10 Essential (primary) hypertension; K21.9 Gastro-esophageal reflux disease without esophagitis; E78.00 Pure hypercholesterolemia, unspecified; F17.200 Nicotine dependence, unspecified, uncomplicated
CPT/HCPCS: 36415; 71046; 80053; 80307; 81001; 83690; 83735; 83880; 84443; 84484; 85025; 85610; 93005; 99285; G0480; 86920

== ENCOUNTER 2021-01-10 01:31 | Emergency (ER) | payer OTHER ==
[~2021-01-10] VITALS: Ht 165.1 cm; Wt 63.6 kg
[2021-01-10 02:50] LABS: BARBITURATES NEG (NEG); BENZODIAZEPINES POS (NEG); CANNABINOIDS NEG (NEG); COCAINE NEG (NEG); METHADONE NEG (NEG); OPIATES NEG (NEG); PHENCYCLIDINE NEG (NEG)
[2021-01-10 02:56] LABS: AMPHETAMINE/METHAMPHETAMINE NEG (NEG)
--- NOTE | 2021-01-10 03:21 | RAD ---
XR CHEST 2V History: Reason: left shoulder pain / Spl. Instructions: / History: Comparison: December 07, 2019 Findings: No consolidation or pleural effusion. Normal heart size. No pneumothorax. Impression: 1. No acute cardiopulmonary process. Electronically signed by: Dayron Matthews DO (01/10/2021 3:18 AM) [facility]
--- NOTE | 2021-01-10 03:23 | RAD ---
XR SHOULDER_LEFT 2+ VIEWS History: Reason: left shoulder pain / Spl. Instructions: / History: Technique: 3 views left shoulder Comparison: November 29, 2020 Findings: Normal alignment of the left glenohumeral and acromioclavicular joints. Mild glenohumeral and acromio clavicular DJD. No fracture. Impression: 1. No acute osseous abnormality. 2. Mild left glenohumeral DJD. Electronically signed by: Dayron Matthews DO (01/10/2021 3:20 AM) [facility]
[2021-01-10 03:26] LABS: BASO # 0.1 x10^3/uL (0.0-0.2); BASO % 1 % (0-3); EOS # 0.2 x10^3/uL (0.0-0.7); EOS % 3 % (0-3); HEMATOCRIT 39.1 % (36.0-47.0); HEMOGLOBIN 13.1 g/dL (12.0-15.5); LYMPH # 2.9 x10^3/uL (1.0-4.8); LYMPH % 36 % (24-48); MEAN CORPUSCULAR HEMOGLOBIN 33 pg (25-35); MEAN CORPUSCULAR HGB CONC 34 g/dL (31-37); MEAN CORPUSCULAR VOLUME 98 fL (79-100); MONO # 0.6 x10^3/uL (0.0-1.1); MONO % 7 % (0-9); NEUT # 4.2 x10^3/uL (1.8-7.7); NEUT % 53 % (31-73); PLATELET COUNT 333 x10^3/uL (140-400); RED CELL DISTRIBUTION WIDTH 13.7 % (11.5-14.5); WHITE BLOOD COUNT 7.9 x10^3/uL (4.0-11.0)
[2021-01-10 03:37] LABS: CALCIUM 9.3 mg/dL (8.5-10.1); CREATININE 0.7 mg/dL (0.6-1.0); GFR 84.5
[2021-01-10 03:43] LABS: ALBUMIN/GLOBULIN RATIO 1.2 (1.0-1.7); TOTAL BILIRUBIN 0.3 mg/dL (0.2-1.0); TOTAL PROTEIN 7.4 g/dL (6.4-8.2)
--- NOTE | 2021-01-10 03:52 | EKG ---
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
[2021-01-10] MEDS ORDERED: LIDO1ADH78 TP (03:53)
[2021-01-10] MEDS ORDERED: CYCL10TA2 PO (03:53)
--- NOTE | 2021-01-10 03:54 | PHYS DOC ---
Past Medical History Past Medical History: Anxiety, GERD, High Cholesterol, Hypertension, Other Additional Past Medical Histor: PALPITATIONS Past Surgical History: Appendectomy, Cholecystectomy, , Other Additional Past Surgical Histo: PARTIAL COLECTOMY Smoking Status: Current Every Day Smoker Alcohol Use: Occasionally Drug Use: None General Adult EDM: Chief Complaint: UPPER EXTREMITY PAIN HPI: HPI: 65-year-old female past medical history significant for hypertension, hyperlipidemia and tobacco dependence, presents the ED with complaints of left " left shoulder, frozen" for 9 months that she follows up with physical therapy, comes the ED to get "checked out with the enzymes." Patient [place], and went to have an EKG performed. States they told her she would need to be seen in the ED for cardiac enzymes. Patient drove here and states she has had chronic left shoulder pain that radiates down the arm to her elbow, intermittently and is wanting reassurance. Patient states she woke up today and the symptoms are worsening. No history of Covid. Patient reports she is tired, stressed and has only had one banana to eat today. Denies any history of IV drug use or cocaine abuse patient denies any associated syncope, chest pain, back pain, hemoptysis, neurologic deficits, head/neck trauma, or falls. No personal or family history of AAA, AAD, CTD (ehlos danlos or marfans), cardiac arrhythmias (need for AICD), sudden or unexplainable (under 50 years of age or with exertion), or clotting disorders. Review of Systems: Review of Systems: Constitutional: Denies fever or chills. [] Eyes: Denies change in visual acuity. [] HENT: Denies nasal congestion or sore throat. [] Respiratory: Denies cough or shortness of breath or hemoptysis Cardiovascular: Denies chest pain or edema. [] GI: Denies abdominal pain, nausea, vomiting, bloody stools or diarrhea. [] : Denies dysuria or hematuria Musculoskeletal: Denies back pain or joint pain. [] Integument: Denies rash diaphoresis Neurologic: Denies headache, focal weakness or sensory changes. [] Endocrine: Denies polyuria or polydipsia. [] Lymphatic: Denies swollen glands. [] Psychiatric: Denies depression or anxiety, suicidal or homicidal ideations Heart Score: C/O Chest Pain: Yes HEART Score for Chest Pain: HEART Score for Chest Pain Response (Comments) Value History Slighlty/Non-Suspicious 0 ECG Normal 0 Age >45 - < 65 1 Risk Factors >3 Risk Factors or Hx CAD 2 Troponin < Normal Limit 0 Total 3 Risk Factors: Risk Factors: DM, Current or recent (<one month) smoker, HTN, HLP, family hist ory of CAD, obesity. Risk Scores: Score 0 - 3: 2.5% MACE over next 6 weeks - Discharge Home Score 4 - 6: 20.3% MACE over next 6 weeks - Admit for Clinical Observation Score 7 - 10: 72.7% MACE over next 6 weeks - Early Invasive Strategies Allergies: Allergies: Allergies Coded Allergies Type Severity Reaction Last Updated Verified No Known Drug Allergies 09/23/17 No Physical Exam: PE: Constitutional: Well developed, well nourished, no acute distress, non-toxic appearance. HENT: Normocephalic, atraumatic, no JVD Eyes: EOMI, conjunctiva normal, no discharge. Neck: Normal range of motion, supple, Cardiovascular: S1/2 present, mild bradycardia Lungs & Thorax: Speaking in full sentences, bilateral equal chest rise, no tachypnea or increased work of breathing Abdomen: soft, no tenderness, Skin: Warm, dry, no erythema, no rash. [] Back: No midline tenderness, no CVA tenderness. [] Extremities: No tenderness, no cyanosis, no lower extremity edema Neurologic: Alert and oriented X 3, normal motor function, normal sensory function, no focal deficits noted. [] Psychologic: Affect normal, judgement normal, mood normal. [] Current Patient Data: Labs: Laboratory Tests Test 01/10/21 01:35 01/10/21 01:38 01/10/21 03:15 Urine Opiates Screen Neg (NEG) Urine Methadone Screen Neg (NEG) Urine Barbiturates Neg (NEG) Urine Phencyclidine Screen Neg (NEG) Urine Amphetamine/Methamphetamine Neg (NEG) Urine Benzodiazepines Screen Pos (NEG) Urine Cocaine Screen Neg (NEG) Urine Cannabinoids Screen Neg (NEG) Urine Ethyl Alcohol Pos (NEG) POC Urine HCG, Qualitative Hcg negative (Negative) White Blood Count 7.9 x10^3/uL (4.0-11.0) Red Blood Count 4.00 x10^6/uL (3.50-5.40) Hemoglobin 13.1 g/dL (12.0-15.5) Hematocrit 39.1 % (36.0-47.0) Mean Corpuscular Volume 98 fL (79-100) Mean Corpuscular Hemoglobin 33 pg (25-35) Mean Corpuscular Hemoglobin Concent 34 g/dL (31-37) Red Cell Distribution Width 13.7 % (11.5-14.5) Platelet Count 333 x10^3/uL (140-400) Neutrophils (%) (Auto) 53 % (31-73) Lymphocytes (%) (Auto) 36 % (24-48) Monocytes (%) (Auto) 7 % (0-9) Eosinophils (%) (Auto) 3 % (0-3) Basophils (%) (Auto) 1 % (0-3) Neutrophils # (Auto) 4.2 x10^3/uL (1.8-7.7) Lymphocytes # (Auto) 2.9 x10^3/uL (1.0-4.8) Monocytes # (Auto) 0.6 x10^3/uL (0.0-1.1) Eosinophils # (Auto) 0.2 x10^3/uL (0.0-0.7) Basophils # (Auto) 0.1 x10^3/uL (0.0-0.2) Sodium Level 139 mmol/L (136-145) Potassium Level 4.0 mmol/L (3.5-5.1) Chloride Level 102 mmol/L (98-107) Carbon Dioxide Level 30 mmol/L (21-32) Anion Gap 7 (6-14) Blood Urea Nitrogen 4 mg/dL (7-20) L Creatinine 0.7 mg/dL (0.6-1.0) Estimated GFR (Cockcroft-Gault) 84.5 BUN/Creatinine Ratio 6 (6-20) Glucose Level 94 mg/dL (70-99) Calcium Level 9.3 mg/dL (8.5-10.1) Magnesium Level 2.0 mg/dL (1.8-2.4) Total Bilirubin 0.3 mg/dL (0.2-1.0) Aspartate Amino Transferase (AST) 16 U/L (15-37) Alanine Aminotransferase (ALT) 28 U/L (14-59) Alkaline Phosphatase 49 U/L (46-116) Total Protein 7.4 g/dL (6.4-8.2) Albumin 4.0 g/dL (3.4-5.0) Albumin/Globulin Ratio 1.2 (1.0-1.7) Lipase 93 U/L (73-393) Laboratory Tests 01/10/21 03:15 Laboratory Tests 01/10/21 03:15 Vital Signs: Vital Signs Date Time Temp Pulse Resp B/P (MAP) Pulse Ox O2 Delivery O2 Flow Rate FiO2 01/10/21 03:02 60 18 120/62 (81) 99 Room Air 01/10/21 01:40 97.8 97.8 EKG: EKG: Sinus rhythm bradycardia at 55 bpm, left axis deviation, normal intervals, T wave inversion V2 and lead III no ST elevations or ST depressions, no active chest pain Radiology/Procedures: Radiology/Procedures: []IMAGING REPORT Signed PATIENT: MELA CAMPBELL ACCOUNT: [id number] : 1955 LOCATION: ER AGE: 65 SEX: F EXAM STATUS: REG ER ORD. PHYSICIAN: SAMANTHA ALFARO DO REASON: left shoulder pain PROCEDURE: SHOULDER 2+V LEFT XR SHOULDER_LEFT 2+ VIEWS History: Reason: left shoulder pain / Spl. Instructions: / History: Technique: 3 views left shoulder Comparison: November 29, 2020 Findings: Normal alignment of the left glenohumeral and acromioclavicular joints. Mild glenohumeral and acromioclavicular DJD. No fracture. Impression: 1. No acute osseous abnormality. 2. Mild left glenohumeral DJD. Electronically signed by: Dayron Matthews DO (01/10/2021 3:20 AM) [facility] DICTATED and SIGNED BY: DAYRON MATTHEWS DO DATE: 01/10/21 [id number] IMAGING REPORT Signed PATIENT: MELA CAMPBELL ACCOUNT: [id number] : 1955 LOCATION: ER AGE: 65 SEX: F EXAM STATUS: REG ER ORD. PHYSICIAN: SAMANTHA ALFARO DO REASON: left shoulder pain PROCEDURE: CHEST PA & LATERAL XR CHEST 2V History: Reason: left shoulder pain / Spl. Instructions: / History: Comparison: December 07, 2019 Findings: No consolidation or pleural effusion. Normal heart size. No pneumothorax. Impression: 1. No acute cardiopulmonary process. Electronically signed by: Dayron Matthews DO (01/10/2021 3:18 AM) [facility] DICTATED and SIGNED BY: DAYRON MATTHEWS DO DATE: 01/10/21 [id number] Course & Med Decision Making: Course & Med Decision Making Pertinent Labs and Imaging studies reviewed. (See chart for details) Concern for left shoulder pain that has been chronic for 9 months, unremarkable EKG and is requesting cardiac enzymes in the ED. patient denies any chest pain, shortness of breath, leg swelling, syncope or neurologic deficits. Is low risk for mace. Has no associated shortness of breath. Will discharge home with strict ED return precautions were given for neurologic deficits, chest pressure, syncope, hemoptysis or dyspnea. Encouraged urgent outpatient follow-up with PMD and cardiology for outpatient management. Life-threatening processes were considered but are low suspicion at this time, given history, physical exam and ED workup. Pt was educated on all prescription medications and adverse effects. All patient's questions were answered and pt was stable at time of discharge. Life/limb-threatening differential includes but is not limited to, acute myocardial infarction, aortic dissection, congestive heart failure, esophageal injury including rupture, surgical abdomen, arrhythmia, cardiomyopathy, myocarditis, pericarditis, peptic ulcer disease, pneumomediastinum, pneumonia, pneumothorax, pulmonary embolus, unstable angina, rib fracture, contusion, pericardial tamponade or effusion, traumatic injury including mediastinal hemorrhage or hematoma, or pulmonary contusion. I spoken with the patient and her caregivers. I explained the patient's condition, diagnoses and treatment plan based on the information available to me at this time. I have answered the patient and her caregiver's questions and addressed any concerns. The patient and her caregivers have a good understanding of patient's diagnosis, condition and treatment plan as can be expected at this point. Vital signs have been stable. Patient's condition is stable and appropriate for discharge from the emergency department. Patient will pursue further outpatient evaluation with primary care physician or other designated or consulting physician as outlined in the discharge instructions. The patient and/or caregivers are agreeable to this plan of care and follow-up instructions have been explained in detail. The patient and/or caregivers have received these instructions in written form and have expressed an understanding of the discharge instructions. The patient and/or caregivers are aware that any significant change of condition or worsening of symptoms should prompt immediate return to this or the closest emergency department or call to [phone]. Jhony Disclaimer: Dragon Disclaimer: This electronic medical record was generated, in whole or in part, using a voice recognition dictation system. Departure Departure Impression: Primary Impression: Left shoulder pain Additional Impression: Alcohol intoxication Disposition: 01 DC HOME SELF CARE/HOMELESS Condition: STABLE Referrals: HOANG KELLER MD (PCP) In 24 to 48 hours for reevaluation Patient Instructions: Alcohol Intoxication, Shoulder Pain Additional Instructions: FOLLOW UP WITH CARDIOLOGY: For outpatient cardiology evaluation [facility] Address: [address] [place] [address] EMERGENCY DEPARTMENT GENERAL DISCHARGE INSTRUCTIONS Thank you for coming to [facility] Emergency Department (ED) today and trusting us with you care. We trust that you had a positive experience in our Emergency Department. If you wish to speak to the department management, you may call the Director at [phone]. YOUR FOLLOW UP INSTRUCTIONS ARE FOLLOWS: 1. Do you have a private Doctor? If you do not have a private doctor, please ask for a resource list of physicians or clinics that may be able to assist you with follow up care. 2. The Emergency Physicain has interpreted your x-rays. The X-Ray specialist will also review them. If there is a change in the findings, you will be notified in 48 hours when at all possible. 3. A lab test or culture has been done, your results will be reviewed and you will be notified if you need a change in treatment. ADDITIONAL INSTRUCTIONS AND INFORMATION: 1. Your care today has been supervised by a physician who is specially trained in emergency care. Many problems require more than one evaluation for a complete diagnosis and treatment. We recommend that you schedule your follow up appointment as recommended to ensure complete treatment of you illness or injury. If you are unable to obtain follow up care and continue to have a problem, or if your condition worsens, we recommend that you return to the ED. 2. We are not able to safely determine your condition over the phone nor are we able to give sound medical advice over the phone. For these safety reasons, if you call for medical advice we will ask you to come to the ED for further evaluation. 3. If you have any questions regarding these discharge instructions please call the ED at [phone]. SAFETY INFORMATION: In the interest of safety, wellness, and injury prevention; we encourage you to wear your sealbelt, if you smoke; quite smoking, and we encourage family to use a protective helmet for bicycling and other sporting events that present an increased risk for head injury. IF YOUR SYMPTOMS WORSEN OR NEW SYMPTOMS DEVELOP, OR YOU HAVE CONCERNS ABOUT YOUR CONDITION; OR IF YOUR CONDITION WORSENS WHILE YOU ARE WAITING FOR YOUR FOLLOW UP APPOINTMENT; EITHER CONTACT YOUR PRIMARY CARE DOCTOR, THE PHYSICIAN WHOSE NAME AND NUMBER YOU WERE GIVEN, OR RETURN TO THE ED IMMEDIATELY. Scripts Cyclobenzaprine Hcl (CYCLOBENZAPRINE HCL) 10 Mg Tablet 1 TAB PO TID PRN for shoulder pain for 4 Days, #12 TAB Prov: SAMANTHA ALFARO DO 01/10/21 Lidocaine (Lido Jose Daniel) 1 Each Adh..patch 1 EACH TP DAILY for 5 Days, #5 PATCH Apply 1 patch for 12 hours, remove for another 12 hours. May repeat, 1 patch per day as instructed above. Prov: SAMANTHA ALFARO DO 01/10/21 SAMANTHA ALFARO DO Jan 10, 2021 03:54
[2021-01-10 04:02] VITALS: BP 96/55
== END 2021-01-10 04:29 | disposition home or self-care (01) ==
LOC: ER 01:31
DX: M25.512 Pain in left shoulder (principal); F10.229 Alcohol dependence with intoxication, unspecified; Y90.9 Presence of alcohol in blood, level not specified; G89.29 Other chronic pain; R00.1 Bradycardia, unspecified; K21.9 Gastro-esophageal reflux disease without esophagitis; E78.00 Pure hypercholesterolemia, unspecified; I10 Essential (primary) hypertension; F17.200 Nicotine dependence, unspecified, uncomplicated
CPT/HCPCS: 36415; 71046; 73030; 80053; 80307; 81025; 83690; 83735; 83880; 84484; 85025; 93005; 99285; G0480

== ENCOUNTER 2021-10-25 17:24 | Emergency (ER) | payer OTHER ==
[~2021-10-25] VITALS: Ht 165.1 cm; Wt 80.0 kg
[~2021-10-25 17:24] MED LIST changes: +CYCL10TA19 PO; +LIDO1ADH78 TP
[2021-10-25 17:39] VITALS: BP 166/96
[2021-10-25 17:43] LABS: BILIRUBIN,URINE NEGATIVE (NEG); CLARITY,URINE CLOUDY; COLOR,URINE YELLOW; NITRITE,URINE NEGATIVE (NEG); PROTEIN,URINE NEGATIVE (NEG-TRACE); UROBILINOGEN,URINE 0.2 mg/dL (0.2 mg/dL)
[2021-10-25 17:48] LABS: BACTERIA,URINE 0 /HPF (0-FEW); RBC,URINE 0 /HPF (0-2); WBC,URINE OCC /HPF (0-4)
[2021-10-25] MEDS ORDERED: CEFP200T PO (18:23)
[2021-10-25] MEDS ORDERED: HYDR-2761 PO (18:24)
--- NOTE | 2021-10-25 18:25 | PHYS DOC ---
Past Medical History Past Medical History: Anxiety, GERD, High Cholesterol, Hypertension, Other Additional Past Medical Histor: PALPITATIONS Past Surgical History: No Surgical History Additional Past Surgical Histo: PARTIAL COLECTOMY Smoking Status: Current Every Day Smoker Alcohol Use: Occasionally Drug Use: None General Adult EDM: Chief Complaint: URINARY FREQUENCY HPI: HPI: Patient is a 66-year-old female who presents to the emergency department for dysuria, urinary frequency/urgency, nausea and flank pain. Patient reports that she was seen by her doctor, Dr. Umana and was prescribed Macrobid and she has been taking that for 4 days. She states that they called her today after the culture came back and told her it was positive for Corynebacterium. Patient does not feel like the Macrobid is going to cover the bacteria. She denies any fevers, vomiting, hematuria. Review of Systems: Review of Systems: Constitutional: negative unless reported in HPI Eyes: negative unless reported in HPI HENT: negative unless reported in HPI Respiratory: negative unless reported in HPI Cardiovascular: negative unless reported in HPI GI: negative unless reported in HPI : negative unless reported in HPI Musculoskeletal: negative unless reported in HPI Integument: negative unless reported in HPI Neurologic: negative unless reported in HPI Endocrine: negative unless reported in HPI Lymphatic: negative unless reported in HPI Psychiatric: negative unless reported in HPI Heart Score: C/O Chest Pain: N/A Risk Factors: Risk Factors: DM, Current or recent (<one month) smoker, HTN, HLP, family history of CAD, obesity. Risk Scores: Score 0 - 3: 2.5% MACE over next 6 weeks - Discharge Home Score 4 - 6: 20.3% MACE over next 6 weeks - Admit for Clinical Observation Score 7 - 10: 72.7% MACE over next 6 weeks - Early Invasive Strategies Allergies: Allergies: Allergies Coded Allergies Type Severity Reaction Last Updated Verified No Known Drug Allergies 10/25/21 No Physical Exam: PE: Constitutional: Well developed, well nourished, no acute distress, non-toxic [place]. [] HENT: Normocephalic, atraumatic, bilateral external ears normal, oropharynx moist, no oral exudates, nose normal. [] Eyes: PERRL, EOMI, conjunctiva normal, no discharge. [] Neck: Normal range of motion, no stridor Cardiovascular:Heart rate regular rhythm, no murmur [] Lungs & Thorax: Bilateral breath sounds clear to auscultation [] Abdomen: Bowel sounds normal, soft, suprapubic tenderness with palpation, no abdominal guarding or rigidity,, no masses, no pulsatile masses. [] Skin: Warm, dry, no erythema, no rash. [] Back: No tenderness, no CVA tenderness Extremities: No tenderness, no cyanosis, no clubbing, ROM intact, no edema. [] Neurologic: Alert and oriented X 3, normal motor function, normal sensory function, no focal deficits noted. [] Psychologic: Affect normal, judgement normal, mood normal. [] Current Patient Data: Labs: Laboratory Tests Test 10/25/21 17:35 Urine Collection Type Unknown Urine Color Yellow Urine Clarity Cloudy Urine pH 7.0 (<5.0-8.0) Urine Specific [place] 1.010 (1.000-1.030) Urine Protein Negative mg/dL (NEG-TRACE) Urine Glucose (UA) Negative mg/dL (NEG) Urine Ketones (Stick) Negative mg/dL (NEG) Urine Blood Negative (NEG) Urine Nitrite Negative (NEG) Urine Bilirubin Negative (NEG) Urine Urobilinogen Dipstick 0.2 mg/dL (0.2 mg/dL) Urine Leukocyte Esterase Small (NEG) Urine RBC 0 /HPF (0-2) Urine WBC Occ /HPF (0-4) Urine Squamous Epithelial Cells Few /LPF Urine Bacteria 0 /HPF (0-FEW) Vital Signs: Vital Signs Date Time Temp Pulse Resp B/P (MAP) Pulse Ox O2 Delivery O2 Flow Rate FiO2 10/25/21 17:39 98.5 68 15 166/96 (119) 96 Room Air 98.5 EKG: EKG: [] Radiology/Procedures: Radiology/Procedures: [] Course & Med Decision Making: Course & Med Decision Making Pertinent Labs and Imaging studies reviewed. (See chart for details) Patient presents to the emergency department for dysuria, nausea, urinary frequency/urgency and flank pain. She reports that she was on Macrobid for the last 4 days to treat a urinary tract infection that was prescribed to her by her primary care provider. Culture came back today positive for Corynebacterium. Patient does have leukocytes and white blood cells in her urine as well as bilateral CVA tenderness. Patient will be treated for pyelonephritis with an antibiotic. I contacted Dr. Umana who is patient's primary care provider who se nt her to the emergency department. He reports that patient did have Corynebacterium and was supposed to bring in her susceptibility report but patient did not bring that in on today's visit. I discussed treatment with Dr. Umana and he is agreeable. She will also be discharged home with pain medication as she is reporting severe bilateral flank pain. Patient advised to increase fluids and avoid bladder irritants. I discussed with patient all findings and diagnostic testing as well as the need to follow-up with PCP for further evaluation and treatment or return to the ER if any new or worsening symptoms. Strict return precautions were also discussed at length. Patient voiced understanding and agreement with the plan. Patient is hemodynamically stable at the time of disposition. Dragon Disclaimer: Dragon Disclaimer: This electronic medical record was generated, in whole or in part, using a voice recognition dictation system. Departure Departure Impression: Primary Impression: Pyelonephritis Disposition: HOME / SELF CARE / HOMELESS Condition: GOOD Referrals: HOANG KELLER MD (PCP) Patient Instructions: Pyelonephritis, Adult Additional Instructions: You are seen in the emergency department today for dysuria, urinary frequency/urgency, nausea and flank pain. Your urinalysis did show an infection and we will cover you for pyelonephritis as well as coverage for the bacteria that you were positive for. Please start and finish the antibiotic completely. Increase your fluids and avoid bladder irritants. You are also being discharged home with pain medication, please use this as directed. This medication may cause sedation so do not take any need to be alert, driving a vehicle or with alcohol. I would contact Dr. Keller's office in the morning and let them know that you were treated with so that they can confirm that the bacteria will be susceptible to what you were treated with. Follow-up with your primary care provider tomorrow regarding your ER visit. Return to the emergency department if you develop worsening of your pain, abdominal pain, high fevers refractory to treatment, intractable nausea or vomiting. Scripts Hydrocodone Bit/Acetaminophen (HYDROCODONE-APAP 5-325 ) 1 Tab Tablet 1 TAB PO PRN Q6HRS PRN for PAIN for 2 Days, #8 TAB 0 Refills Prov: SHARYN ALVAREZ INSPECTOR RECEIVING 10/25/21 Cefpodoxime Proxetil (CEFPODOXIME PROXETIL) 200 Mg Tablet 1 TAB PO BID for 14 Days, #28 TAB 0 Refills Prov: SHARYN ALVAREZ APRN 10/25/21 SHARYN ALVAREZ APRN Oct 25, 2021 18:25
== END 2021-10-25 18:42 | disposition home or self-care (01) ==
LOC: ER 17:24
DX: N12 Tubulo-interstitial nephritis, not specified as acute or chronic (principal); K21.9 Gastro-esophageal reflux disease without esophagitis; E78.00 Pure hypercholesterolemia, unspecified; I10 Essential (primary) hypertension; F17.200 Nicotine dependence, unspecified, uncomplicated; Z90.49 Acquired absence of other specified parts of digestive tract
CPT/HCPCS: 81001; 87086; 99283

== ENCOUNTER 2021-11-26 11:15 | Emergency (ER) | payer OTHER ==
[~2021-11-26] VITALS: Ht 165.1 cm; Wt 68.6 kg
[~2021-11-26 11:15] MED LIST changes: +HYDR-2761 PO
[2021-11-26] MEDS ORDERED: MORPHINE SULFATE 4 MG/ML INJ. IVP ONE ×2 (12:00→13:45)
[2021-11-26 12:09] LABS: BILIRUBIN,URINE NEGATIVE (NEG); CLARITY,URINE CLEAR; COLOR,URINE YELLOW; NITRITE,URINE NEGATIVE (NEG); PROTEIN,URINE NEGATIVE (NEG-TRACE); UROBILINOGEN,URINE 0.2 mg/dL (0.2 mg/dL)
[2021-11-26 12:18] LABS: BACTERIA,URINE 0 /HPF (0-FEW); RBC,URINE 0 /HPF (0-2); WBC,URINE 0 /HPF (0-4)
[2021-11-26 12:35] LABS: BASO # 0.1 x10^3/uL (0.0-0.2); BASO % 1 % (0-3); EOS % 0 % (0-3); HEMATOCRIT 41.4 % (36.0-47.0); HEMOGLOBIN 13.8 g/dL (12.0-15.5); LYMPH % 20 % (24-48); MEAN CORPUSCULAR HEMOGLOBIN 33 pg (25-35); MEAN CORPUSCULAR HGB CONC 33 g/dL (31-37); MEAN CORPUSCULAR VOLUME 98 fL (79-100); MONO # 0.6 x10^3/uL (0.0-1.1); MONO % 6 % (0-9); NEUT # 7.2 x10^3/uL (1.8-7.7); NEUT % 73 % (31-73); PLATELET COUNT 365 x10^3/uL (140-400); RED BLOOD COUNT 4.22 x10^6/uL (3.50-5.40); RED CELL DISTRIBUTION WIDTH 13.6 % (11.5-14.5); WHITE BLOOD COUNT 9.9 x10^3/uL (4.0-11.0)
[2021-11-26 12:40] LABS: CALCIUM 8.9 mg/dL (8.5-10.1); CREATININE 0.7 mg/dL (0.6-1.0); GFR 84.2; POTASSIUM 3.9 mmol/L (3.5-5.1)
[2021-11-26 12:45] LABS: ALBUMIN 3.8 g/dL (3.4-5.0); ALBUMIN/GLOBULIN RATIO 1.1 (1.0-1.7); TOTAL BILIRUBIN 0.3 mg/dL (0.2-1.0); TOTAL PROTEIN 7.3 g/dL (6.4-8.2)
[2021-11-26] MEDS ORDERED: IOHEXOL 300 MG/ML 100ML VIAL. IV ONE (13:00)
[2021-11-26] MEDS ORDERED: CONTRAST GIVEN. MC PRN (13:00)
[2021-11-26 13:17] VITALS: BP 119/66
--- NOTE | 2021-11-26 13:39 | RAD ---
Exam Date: 11/26/2021 12:[address] ABDOMEN+PELVIS W Indication: Reason: Epigastric/RUQ pain, history of cholecystectomy / Spl. Instructions: OMNI 300 INJ . 75MLS / History: . TECHNIQUE: CT examination of the abdomen and pelvis was performed following the administration of no nionic intravenous contrast. One or more of the following dose reduction techniques were utilized: *Automated exposure control (AEC) *Adjustment of mA and/or kV according to patient size *Use of iterative reconstruction technique *CT scan done according to ALARA, or ALARA/IMAGE GENTLY COMPARISON: October 14, 2019 FINDINGS: The visualized lung bases are clear. Status post cholecystectomy. The liver, spleen, pancreas, adrenal glands and kidneys are normal. Urinary bladder is normal in appearance. Diverticulosis coli is seen without bowel obstruction or inflammation. Postoperative changes in the right lower quadrant suggest prior appendectomy. Predominantly fluid-filled large bowel could indica te diarrhea. Mild atherosclerotic calcifications are seen. No lymphadenopathy or ascites is seen. Degenerative changes are seen in the spine. IMPRESSION: No bowel obstruction. Predominantly fluid-filled large bowel could indicate diarrhea. Electronically signed by: Ralph Chaparro MD (11/26/2021 1:36 PM) [facility]
[2021-11-26] MEDS ORDERED: ONDANSETRON PF 4 MG/2 ML VIAL. IVP ONE (13:45)
[2021-11-26] MEDS ORDERED: SUCR1TAB PO (13:51)
--- NOTE | 2021-11-26 13:52 | PHYS DOC ---
Past Medical History Past Medical History: Anxiety, GERD, High Cholesterol, Hypertension, Other Additional Past Medical Histor: PALPITATIONS Past Surgical History: No Surgical History Additional Past Surgical Histo: PARTIAL COLECTOMY Smoking Status: Current Every Day Smoker Alcohol Use: Occasionally Drug Use: None General Adult EDM: Chief Complaint: ABDOMINAL PAIN HPI: HPI: Patient is a 66 year old female with history of anxiety, previous cholecyste ctomy who presents with epigastric and right upper quadrant pain for the past week. Patient states that the pain actually started before this but has been more intermittent. Has been more frequent over the past week. Constant since last night. Associate with nausea but no vomiting. Has had alternating loose and solid bowel movements. Last BM this morning. No dark or bloody stools. No fevers or chills. She has not had any issues with gallstone since her cholecystectomy. She is very concerned that this may be pancreatic cancer because her friend recently from pancreatic CA. Review of Systems: Review of Systems: Constitutional: Denies fever or chills. [] Eyes: Denies change in visual acuity. [] HENT: Denies nasal congestion or sore throat. [] Respiratory: Denies cough or shortness of breath. [] Cardiovascular: Denies chest pain or edema. [] GI: Reports abdominal pain, nausea. Denies vomiting or bloody stool/melena. : Denies dysuria. [] Musculoskeletal: Denies back pain or joint pain. [] Integument: Denies rash. [] Neurologic: Denies headache, focal weakness or sensory changes. [] Endocrine: Denies polyuria or polydipsia. [] Lymphatic: Denies swollen glands. [] Psychiatric: Denies depression or anxiety. [] Heart Score: C/O Chest Pain: No Current Medications: Current Medications Medications (Trade) Dose Ordered Sig/Shawn Start Time Stop Time Status Last Admin Dose Admin Info (CONTRAST GIVEN -- Rx MONITORING) 1 each PRN DAILY PRN 11/26/21 13:00 11/28/21 12:59 Iohexol (Omnipaque 300 Mg/ml) 75 ml 1X ONCE 11/26/21 13:00 11/26/21 13:01 DC 11/26/21 13:01 75 ML Morphine Sulfate (Morphine Sulfate) 4 mg 1X ONCE 11/26/21 13:45 11/26/21 13:46 11/26/21 13:40 4 MG Ondansetron HCl (Zofran) 4 mg 1X ONCE 11/26/21 13:45 11/26/21 13:46 11/26/21 13:40 4 MG Allergies: Allergies: Allergies Coded Allergies Type Severity Reaction Last Updated Verified No Known Drug Allergies 11/26/21 No Physical Exam: PE: Constitutional: Well developed, well nourished, no acute distress, non-toxic appearance. [] HENT: Normocephalic, atraumatic Cardiovascular:Heart rate regular rhythm, no murmur [] Lungs & Thorax: Bilateral breath sounds clear to auscultation [] Abdomen: Diffuse tenderness to palpation with voluntary guarding. No rigidity. No rebound. Seems to be worse in the epigastrium Skin: Warm, dry, no erythema, no rash. [] Back: No tenderness, no CVA tenderness. [] Extremities: No tenderness, no cyanosis, no clubbing, ROM intact, no edema. [] Neurologic: Alert and oriented X 3, normal motor function, normal sensory function, no focal deficits noted. [] Psychologic: Stated anxious mood, congruent affect. Current Patient Data: Labs: Laboratory Tests Test 11/26/21 11:32 11/26/21 12:11 Urine Collection Type Unknown Urine Color Yellow Urine Clarity Clear Urine pH 7.0 (<5.0-8.0) Urine Specific [place] <=1.005 (1.000-1.030) Urine Protein Negative mg/dL (NEG-TRACE) Urine Glucose (UA) Negative mg/dL (NEG) Urine Ketones (Stick) Negative mg/dL (NEG) Urine Blood Negative (NEG) Urine Nitrite Negative (NEG) Urine Bilirubin Negative (NEG) Urine Urobilinogen Dipstick 0.2 mg/dL (0.2 mg/dL) Urine Leukocyte Esterase Negative (NEG) Urine RBC 0 /HPF (0-2) Urine WBC 0 /HPF (0-4) Urine Squamous Epithelial Cells Occ /LPF Urine Bacteria 0 /HPF (0-FEW) White Blood Count 9.9 x10^3/uL (4.0-11.0) Red Blood Count 4.22 x10^6/uL (3.50-5.40) Hemoglobin 13.8 g/dL (12.0-15.5) Hematocrit 41.4 % (36.0-47.0) Mean Corpuscular Volume 98 fL (79-100) Mean Corpuscular Hemoglobin 33 pg (25-35) Mean Corpuscular Hemoglobin Concent 33 g/dL (31-37) Red Cell Distribution Width 13.6 % (11.5-14.5) Platelet Count 365 x10^3/uL (140-400) Neutrophils (%) (Auto) 73 % (31-73) Lymphocytes (%) (Auto) 20 % (24-48) L Monocytes (%) (Auto) 6 % (0-9) Eosinophils (%) (Auto) 0 % (0-3) Basophils (%) (Auto) 1 % (0-3) Neutrophils # (Auto) 7.2 x10^3/uL (1.8-7.7) Lymphocytes # (Auto) 2.0 x10^3/uL (1.0-4.8) Monocytes # (Auto) 0.6 x10^3/uL (0.0-1.1) Eosinophils # (Auto) 0.0 x10^3/uL (0.0-0.7) Basophils # (Auto) 0.1 x10^3/uL (0.0-0.2) Sodium Level 139 mmol/L (136-145) Potassium Level 3.9 mmol/L (3.5-5.1) Chloride Level 102 mmol/L (98-107) Carbon Dioxide Level 26 mmol/L (21-32) Anion Gap 11 (6-14) Blood Urea Nitrogen 11 mg/dL (7-20) Creatinine 0.7 mg/dL (0.6-1.0) Estimated GFR (Cockcroft-Gault) 84.2 BUN/Creatinine Ratio 16 (6-20) Glucose Level 103 mg/dL (70-99) H Calcium Level 8.9 mg/dL (8.5-10.1) Total Bilirubin 0.3 mg/dL (0.2-1.0) Aspartate Amino Transferase (AST) 23 U/L (15-37) Alanine Aminotransferase (ALT) 33 U/L (14-59) Alkaline Phosphatase 52 U/L (46-116) Total Protein 7.3 g/dL (6.4-8.2) Albumin 3.8 g/dL (3.4-5.0) Albumin/Globulin Ratio 1.1 (1.0-1.7) Lipase 62 U/L (73-393) L Laboratory Tests 11/26/21 12:11 Laboratory Tests 11/26/21 12:11 Vital Signs: Vital Signs Date Time Temp Pulse Resp B/P (MAP) Pulse Ox O2 Delivery O2 Flow Rate FiO2 11/26/21 13:40 Room Air 11/26/21 13:17 62 16 119/66 (83) 98 11/26/21 11:15 97.9 97.9 EKG: EKG: [] Radiology/Procedures: Radiology/Procedures: [] Impression: [facility] [address] [place] [address] IMAGING REPORT Signed PATIENT: MELA CAMPBELL ACCOUNT: [id number] : 1955 LOCATION: ER AGE: 66 SEX: F EXAM STATUS: REG ER ORD. PHYSICIAN: NICHELLE RIVERA MD REASON: Epigastric/RUQ pain, history of cholecystectomy PROCEDURE: CT ABD PELV W/ IV CONTRST ONLY Exam Date: 11/26/2021 12:[address] ABDOMEN+PELVIS W Indication: Reason: Epigastric/RUQ pain, history of cholecystectomy / Spl. Instructions: OMNI 300 INJ. 75MLS / History: . TECHNIQUE: CT examination of the abdomen and pelvis was performed following the administration of nonionic intravenous contrast. One or more of the following dose reduction techniques were utilized: *Automated exposure control (AEC) *Adjustment of mA and/or kV according to patient size *Use of iterative reconstruction technique *CT scan done according to ALARA, or ALARA/IMAGE GENTLY COMPARISON: October 14, 2019 FINDINGS: The visualized lung bases are clear. Status post cholecystectomy. The liver, spleen, pancreas, adrenal glands and kidneys are normal. Urinary bladder is normal in appearance. Diverticulosis coli is seen without bowel obstruction or inflammation. Postoperative changes in the right lower quadrant suggest prior appendectomy. Predominantly fluid-filled large bowel could indicate diarrhea. Mild atherosclerotic calcifications are seen. No lymphadenopathy or ascites is seen. Degenerative changes are seen in the spine. IMPRESSION: No bowel obstruction. Predominantly fluid-filled large bowel could indicate diarrhea. Electronically signed by: Willow Chaparro MD (11/26/2021 1:36 PM) [facility] DICTATED and SIGNED BY: WILLOW CHAPARRO MD DATE: 11/26/21 [id number] 0 Course & Med Decision Making: Course & Med Decision Making Pertinent Labs and Imaging studies reviewed. (See chart for details) Patient is a 66-year-old female with history of previous cholecystectomy, anxiety presents with epigastric abdominal pain that is been waxing waning over the past week or longer. She is tender diffusely throughout her abdomen, but no rebound, or peritoneal signs. She is very anxious and is guarding the exam voluntarily. No fever, vital signs normal. Lipase and LFTs are normal. CT abdomen/pelvis is without acute findings. UA is negative. No history of melena or hematochezia to suggest bleeding PUD. Will suggest treatment for potential gastritis and PCP follow-up 1350 Dragon Disclaimer: Dragon Disclaimer: This electronic medical record was generated, in whole or in part, using a voice recognition dictation system. Departure Departure Disposition: HOME / SELF CARE / HOMELESS Condition: STABLE Referrals: JUAN J MILLS APRN (PCP) Schedule follow-up appointment with your primary care doctor. Additional Instructions: Your labs and CT scan were reassuring today. This may be due to some inflammation in your stomach called gastritis. Please take omeprazole 40 mg daily. Take it 30 minutes before your first meal of the day. This is an [id number] medication. There is also a prescription medication called sucralfate that can be taken to coat the stomach lining and reduce pain. This can be taken 3 times a day. Please take for the next 3 to 4 days, if it is not helping you can discontinue the medication at that time. Otherwise you can take Tylenol 1000 mg 4 times daily as needed for pain. Do not exceed 4000 mg in a day. Please schedule follow-up appoint with your primary care doctor to ensure your symptoms are improving. Scripts Sucralfate (SUCRALFATE) 1 Gm Tablet 1 TAB PO TID, #30 TAB 0 Refills Prov: NICHELLE RIVERA MD 11/26/21 NICHELLE RIVERA MD Nov 26, 2021 13:52
[2021-11-26] MEDS ORDERED: LIDO:MAALOX 1:1 20 ML SINGLE DOSE. SWSW ONE (14:00)
[2021-11-26] MEDS ORDERED: ONDA4TAB12 PO (14:13)
== END 2021-11-26 14:22 | disposition home or self-care (01) ==
LOC: ER 11:15
DX: R10.13 Epigastric pain (principal); R10.11 Right upper quadrant pain; K21.9 Gastro-esophageal reflux disease without esophagitis; E78.00 Pure hypercholesterolemia, unspecified; I10 Essential (primary) hypertension; F17.200 Nicotine dependence, unspecified, uncomplicated; Z90.49 Acquired absence of other specified parts of digestive tract
CPT/HCPCS: 36415; 74177; 80053; 81001; 83690; 85025; 96374; 96375; 96376; 99285; J2270; J2405; Q9967

== ENCOUNTER 2022-02-23 07:20 | Emergency (ER) | payer OTHER ==
[~2022-02-23] VITALS: Ht 165.1 cm; Wt 69.4 kg
[~2022-02-23 07:20] MED LIST changes: +ONDA4TAB12 PO; +SUCR1TAB PO
[2022-02-23 08:02] LABS: INFLUENZA A PATIENT NEGATIVE (NEGATIVE); INFLUENZA B PATIENT NEGATIVE (NEGATIVE)
[2022-02-23 08:11] LABS: BASO # 0.1 x10^3/uL (0.0-0.2); BASO % 1 % (0-3); EOS # 0.1 x10^3/uL (0.0-0.7); EOS % 1 % (0-3); HEMATOCRIT 40.4 % (36.0-47.0); HEMOGLOBIN 13.8 g/dL (12.0-15.5); LYMPH # 1.2 x10^3/uL (1.0-4.8); LYMPH % 23 % (24-48); MEAN CORPUSCULAR HEMOGLOBIN 34 pg (25-35); MEAN CORPUSCULAR HGB CONC 34 g/dL (31-37); MEAN CORPUSCULAR VOLUME 99 fL (79-100); MONO # 0.9 x10^3/uL (0.0-1.1); MONO % 17 % (0-9); NEUT # 3.2 x10^3/uL (1.8-7.7); NEUT % 59 % (31-73); PLATELET COUNT 307 x10^3/uL (140-400); RED BLOOD COUNT 4.09 x10^6/uL (3.50-5.40); RED CELL DISTRIBUTION WIDTH 13.6 % (11.5-14.5); WHITE BLOOD COUNT 5.4 x10^3/uL (4.0-11.0)
[2022-02-23 08:22] LABS: CALCIUM 9.3 mg/dL (8.5-10.1); CREATININE 0.8 mg/dL (0.6-1.0); GFR 72.2; POTASSIUM 4.5 mmol/L (3.5-5.1)
--- NOTE | 2022-02-23 08:24 | PHYS DOC ---
Past Medical History Past Medical History: Anxiety, GERD, High Cholesterol, Hypertension, Other Additional Past Medical Histor: PALPITATIONS,IBS Past Surgical History: Other Additional Past Surgical Histo: PARTIAL COLECTOMY Smoking Status: Current Every Day Smoker Additional Information: 1 PPD Alcohol Use: Occasionally Additional Information: DRINKS WINE EVERY NIGHT Drug Use: None General Adult EDM: Chief Complaint: SHORTNESS OF BREATH HPI: HPI: Patient is a 66 year old female who presents to the emergency department today with concerns for COVID. Patient states that she lives with her iftixlp-zy-kdh and sister. She states that about 2 weeks ago her obxunnh-ku-xjf tested positive for COVID. She states about a week ago she began having symptoms of body aches, cough, and shortness of breath. She states that her cough has been nonproductive. She denies having any fever. She denies having any chest pain. She states on yesterday she took a COVID test at home that was positive but decided to present to the emergency department today for confirmation. She states she has been checking her pulse ox at home and is running between 97 and 99%. Patient has been fully vaccinated with the Pfizer vaccine and has received 1 booster. Review of Systems: Review of Systems: Constitutional: Denies fever or chills. [] Eyes: Denies change in visual acuity. [] HENT: Denies nasal congestion or sore throat. [] Respiratory: Denies cough or shortness of breath. [] Cardiovascular: Denies chest pain or edema. [] GI: Denies abdominal pain, nausea, vomiting, bloody stools or diarrhea. [] : Denies dysuria. [] Musculoskeletal: Denies back pain or joint pain. [] Integument: Denies rash. [] Neurologic: Denies headache, focal weakness or sensory changes. [] Endocrine: Denies polyuria or polydipsia. [] Lymphatic: Denies swollen glands. [] Psychiatric: Denies depression or anxiety. [] Heart Score: C/O Chest Pain: No Risk Factors: Risk Factors: DM, Current or recent (<one month) smoker, HTN, HLP, family history of CAD, obesity. Risk Scores: Score 0 - 3: 2.5% MACE over next 6 weeks - Discharge Home Score 4 - 6: 20.3% MACE over next 6 weeks - Admit for Clinical Observation Score 7 - 10: 72.7% MACE over next 6 weeks - Early Invasive Strategies Family History: Family History: Noncontributory Allergies: Allergies: Allergies Coded Allergies Type Severity Reaction Last Updated Verified No Known Drug Allergies 11/26/21 No Physical Exam: PE: Constitutional: Well developed, well nourished, no acute distress, non-toxic appearance. [] HENT: Normocephalic, atraumatic, bilateral external ears normal, oropharynx mois t, no oral exudates, nose normal. [] Eyes: PERRLA, EOMI, conjunctiva normal, no discharge. [] Neck: Normal range of motion, no tenderness, supple, no stridor. [] Cardiovascular:Heart rate regular rhythm, no murmur [] Lungs & Thorax: Bilateral breath sounds clear to auscultation [] Abdomen: Bowel sounds normal, soft, no tenderness, no masses, no pulsatile masses. [] Skin: Warm, dry, no erythema, no rash. [] Back: No tenderness, no CVA tenderness. [] Extremities: No tenderness, no cyanosis, no clubbing, ROM intact, no edema. [] Neurologic: Alert and oriented X 3, normal motor function, normal sensory function, no focal deficits noted. [] Psychologic: Affect normal, judgement normal, mood normal. [] Current Patient Data: Labs: Laboratory Tests Test 02/23/22 07:35 02/23/22 08:04 Influenza Type A Antigen Negative (NEGATIVE) Influenza Type B Antigen Negative (NEGATIVE) SARS-CoV-2 Antigen (Rapid) Positive (NEGATIVE) *A White Blood Count 5.4 x10^3/uL (4.0-11.0) Red Blood Count 4.09 x10^6/uL (3.50-5.40) Hemoglobin 13.8 g/dL (12.0-15.5) Hematocrit 40.4 % (36.0-47.0) Mean Corpuscular Volume 99 fL (79-100) Mean Corpuscular Hemoglobin 34 pg (25-35) Mean Corpuscular Hemoglobin Concent 34 g/dL (31-37) Red Cell Distribution Width 13.6 % (11.5-14.5) Platelet Count 307 x10^3/uL (140-400) Neutrophils (%) (Auto) 59 % (31-73) Lymphocytes (%) (Auto) 23 % (24-48) L Monocytes (%) (Auto) 17 % (0-9) H Eosinophils (%) (Auto) 1 % (0-3) Basophils (%) (Auto) 1 % (0-3) Neutrophils # (Auto) 3.2 x10^3/uL (1.8-7.7) Lymphocytes # (Auto) 1.2 x10^3/uL (1.0-4.8) Monocytes # (Auto) 0.9 x10^3/uL (0.0-1.1) Eosinophils # (Auto) 0.1 x10^3/uL (0.0-0.7) Basophils # (Auto) 0.1 x10^3/uL (0.0-0.2) Laboratory Tests 02/23/22 08:04 Vital Signs: Vital Signs Date Time Temp Pulse Resp B/P (MAP) Pulse Ox O2 Delivery O2 Flow Rate FiO2 02/23/22 07:29 97.8 64 18 135/73 (93) 98 Room Air 97.8 EKG: EKG: EKG shows a normal sinus rhythm with a rate of 62. Intervals are normal. There is a left axis deviation. No evidence of ischemia or infarction. Radiology/Procedures: Radiology/Procedures: Laboratory Tests Test 02/23/22 07:35 02/23/22 08:04 Influenza Type A Antigen Negative Influenza Type B Antigen Negative SARS-CoV-2 Antigen (Rapid) Positive White Blood Count 5.4 x10^3/uL Red Blood Count 4.09 x10^6/uL Hemoglobin 13.8 g/dL Hematocrit 40.4 % Mean Corpuscular Volume 99 fL Mean Corpuscular Hemoglobin 34 pg Mean Corpuscular Hemoglobin Concent 34 g/dL Red Cell Distribution Width 13.6 % Platelet Count 307 x10^3/uL Neutrophils (%) (Auto) 59 % Lymphocytes (%) (Auto) 23 % Monocytes (%) (Auto) 17 % Eosinophils (%) (Auto) 1 % Basophils (%) (Auto) 1 % Neutrophils # (Auto) 3.2 x10^3/uL Lymphocytes # (Auto) 1.2 x10^3/uL Monocytes # (Auto) 0.9 x10^3/uL Eosinophils # (Auto) 0.1 x10^3/uL Basophils # (Auto) 0.1 x10^3/uL Sodium Level 139 mmol/L Potassium Level 4.5 mmol/L Chloride Level 104 mmol/L Carbon Dioxide Level 24 mmol/L Anion Gap 11 Blood Urea Nitrogen 9 mg/dL Creatinine 0.8 mg/dL Estimated GFR (Cockcroft-Gault) 72.2 Glucose Level 101 mg/dL Calcium Level 9.3 mg/dL Troponin I High Sensitivity 5 ng/L [EXAMINATION: Chest radiograph. VIEWS: 1 COMPARISON: 01/10/2021 INDICATION:66 years, Female, cough. FINDINGS: Normal cardiomediastinal silhouette. Prominent bilateral harshil with cephalization of pulmonary vessels. No focal consolidation. No pleural effusion or pneumothorax. No acute osseous process. IMPRESSION: Prominent bilateral harshil with cephalization of pulmonary vessels, findings can be seen in pulmonary vascular congestion, without overt edema. Electronically signed by: Indu Luque MD (02/23/2022 8:23 AM) [id number] Course & Med Decision Making: Course & Med Decision Making Patient presents with symptoms concerning for COVID. Rapid COVID home test positive yesterday. COVID here is positive. EKG shows no evidence of ischemia or infarction. Chest x-ray shows no evidence of any pneumonia. Remainder the labs are unremarkable. Patient's O2 saturations have remained in the upper 90s while here in the emergency department. We will discharge her home and have her follow-up with her PCP. Jhony Disclaimer: Jhony Disclaimer: This electronic medical record was generated, in whole or in part, using a voice recognition dictation system. Departure Departure Impression: Primary Impression: COVID-19 Disposition: 01 HOME / SELF CARE / HOMELESS Condition: IMPROVED Referrals: JUAN J MILLS APRN (PCP) Additional Instructions: You have been tested for or diagnosed with COVID-19. It is an infection caused by a new type of coronavirus. COVID-19 will cause cold-like or mild flu symptoms in most. It can cause more severe symptoms like problems breathing in some. There is no treatment for COVID-19. The body will clear the infection over time. Self-care will help to ease discomfort. Steps to Take: Self-Care Rest as needed. Healthy habits may help you feel better. Steps include: Choose healthy foods including fruits and vegetables. Drink water throughout the day. Get plenty of sleep each night. If you smoke, try to quit. It may ease breathing. Avoid alcohol. Keep Others Healthy The virus can spread to others. Droplets are released every time you sneeze or cough. The droplets can get into the mouth, nose, or eyes of people near you and lead to infection. To lower the chances of spreading COVID-19 to others: Stay at home until your doctor has said it is safe to leave. If you tested positive this will mean staying isolated until both of the following are true: At least 7 days have passed since the start of illness. You are free of fever for at least 72 hours without the use of medicine. During this time: - Avoid public areas, events, or transportation. Do not return to work or [employer] Room until your doctor has said it is safe to do so. - Call ahead if you need to go to a medical center. Let them know you may have COVID-19. It will help them guide you where to go. They may also ask you to wear a facemask when you come to the office. - If you call for emergency medical services, let them know you may have COVID- 19. While at home: - Try to avoid close contact with others. Stay about 6 feet away. - If possible, spend most of your time in a separate room from others. - Use a face mask if you will be in close contact with others such as sharing a room or vehicle. - Have someone wipe down common surfaces in the home. Use household fishery biologist every day on areas like doorknobs, counters, or sinks. - Cough or sneeze into a tissue. Throw the tissue away right after use. If a tissue is not available, cough or sneeze into your elbow. - Wash your hands often. Wash them after sneezing or coughing. Use soap and water and wash for at least 20 seconds. Alcohol based hand upholstery cleaner can be used if soap and water is not available. - Do not prepare food for others. Avoid sharing personal items like forks, spoons, or toothbrushes. - Avoid close contact with pets while you are sick. There is no evidence of the virus passing to pets. This is a safety step until more is known about this virus. Isolation can be frustrating. Social interaction can help. Keep in touch with friends and family through phone and tech options. You can still interact with others in your home, just keep a safe distance of about 6 feet. Follow-up: Your doctors office will check in with you to see if there are any changes in your health. You may be asked to keep track of symptoms to share with them. They will also let you know when you are clear to be in public again. Problems to Look Out For: Contact your doctor if your recovery is not going as you expect. Get emergency care if you have problems such as: - Trouble breathing - Nonstop chest pain or pressure - Changes in awareness, confusion, or problems waking - Lips or face have bluish color - Worsening of symptoms If you think you have an emergency, call for emergency medical services right away. As taken from [facility],CHIOMA Yen MD February 23, 2022 08:24
--- NOTE | 2022-02-23 08:26 | RAD ---
EXAMINATION: Chest radiograph. VIEWS: 1 COMPARISON: 01/10/2021 INDICATION:66 years, Female, cough. FINDINGS: Normal cardiomediastinal silhouette. Prominent bilateral harshil with cephalization of pulmonary vessels . No focal consolidation. No pleural effusion or pneumothorax. No acute osseous process. IMPRESSION: Prominent bilateral harshil with cephalization of pulmonary vessels, findings can be seen in pulmonary v ascular congestion, without overt edema. Electronically signed by: Indu Luque MD (02/23/2022 8:23 AM) [id number]
[2022-02-23 09:26] VITALS: BP 121/66
--- NOTE | 2022-02-24 01:22 | EKG ---
[facility] [address] [place] [address] Test Date: 2022-02-23 Test Time: 08:03:06 Pat Name: MELA CAMPBELL Department: Room: Gender: F Seam Checker: : 1955 Requested By: CHIOMA PATEL Order Number: [id number] Reading MD: Tyshawn Singh Measurements Intervals [place] Rate: 62 P: 56 MS: 150 QRS: -47 QRSD: 76 T: 22 QT: 422 QTc: 431 Interpretive Statements SINUS RHYTHM ABNORMAL LEFT AXIS DEVIATION LEFT ANTERIOR FASCICULAR BLOCK Electronically Signed On 02-25-2022 11:14:45 CDT by Tyshawn Singh
== END 2022-02-23 09:54 | disposition home or self-care (01) ==
LOC: ER 07:20
DX: U07.1 COVID-19 (principal); F41.9 Anxiety disorder, unspecified; K21.9 Gastro-esophageal reflux disease without esophagitis; E78.00 Pure hypercholesterolemia, unspecified; I10 Essential (primary) hypertension; F17.200 Nicotine dependence, unspecified, uncomplicated
CPT/HCPCS: 36415; 71045; 80048; 84484; 85025; 87428; 93005; 99285